=== PATIENT | male | born 1965 | race Caucasian/White ===

== ENCOUNTER → 2017-10-11 16:00 | Outpatient (CLI) | payer MEDICAID, SELFPAY ==
--- NOTE | 2017-10-11 16:00 | MRI_ITS ---
STUDY: MRI UPPER EXTREMITY RIGHT HUMERUS WITHOUT CONTRAST REASON FOR EXAM: Lump mid anterior upper arm, symptoms for one year. TECHNIQUE: Standardized fat and water weighted pulse sequences were obtained in all 3 orthogonal planes. COMPARISON: MRI right shoulder obtained the same day. FINDINGS: Normal subcutis adipose space. There is no demonstrated solid, cystic, or lipomatous mass within the subcutaneous adipose space. There is mild edema in the proximal biceps musculotendinous junction (inversion recovery axial images 14-16). The long biceps tendon appears to be retracted to approximately the level of the proximal/mid humeral diaphyseal junction (inversion recovery series 8 image 11). The distal biceps tendon cannot be evaluated secondary to artifact from metallic foreign body. Normal visualized neurovascular bundles. Normal humerus. MRI/Upper Ext/No Jt/ wo IMPRESSION: Retracted tear of the long biceps tendon with mild edema in the proximal biceps musculotendinous junction. Electronically Signed: Vitaliy Mckinnon MD at 7:46 EDT Tel , Service support ,
--- NOTE | 2017-10-11 16:00 | MRI_ITS ---
STUDY: MRI RIGHT SHOULDER REASON FOR EXAM: Right shoulder pain with limited range of motion, lump mid anterior upper arm. TECHNIQUE: Standardized fat and water weighted pulse sequences were obtained in all 3 orthogonal planes. COMPARISON: Radiographs 02/07/2017. FINDINGS: There is mild supraspinatus tendinosis and a full-thickness tear of the anterior supraspinatus tendon (T2 coronal image 14, T2 axial image 8) measuring approximately 1.0 x 1.2 cm (length x width). Normal infraspinatus tendon. Normal subscapularis tendon. Normal teres minor tendon. There is mild atrophy with mild partial fat replacement of the supraspinatus muscle (T2 axial image 8). Normal infraspinatus muscle. Normal subscapularis muscle. Normal teres minor muscle. There is a very small glenohumeral joint effusion. Normal humeral head and visualized proximal humerus. There is a tear with nonvisualization of the intracapsular long biceps tendon. There is a small superior labral tear (T2 coronal image 10). Normal capsulo- ligamentous complex. There is mild acromioclavicular arthrosis (T2 coronal images 11, 12) without undersurface osteophytes. There is a Type II morphology (curved), with a neutral orientation. There is a small volume of subacromial-subdeltoid bursal fluid. There is thickening of the coracoacromial ligament (T2 sagittal image 8). Normal deltoid muscle. Normal trapezius muscle. MRI/Upper Ext Joint Only(Routine) IMPRESSION: Full-thickness tear and mild tendinosis of the supraspinatus tendon. Mild atrophy of the supraspinatus muscle. Tear of the long biceps tendon. Small superior labral tear. Mild acromioclavicular arthrosis. Thickening of the coracoacromial ligament. Glenohumeral joint fluid communicating with the subacromial-subdeltoid bursa. Electronically Signed: Vitaliy Mckinnon MD at 7:47 EDT Tel , Service support ,
== END ==
PROVIDERS: Family Provider Family Medicine; PCP Family Medicine; Visit Provider Orthopaedic Surgery
DX: S46.211A Strain of muscle, fascia and tendon of other parts of biceps, right arm, initial encounter (principal); M75.101 Unspecified rotator cuff tear or rupture of right shoulder, not specified as traumatic
CPT/HCPCS: 73218; 73221

== ENCOUNTER 2017-11-14 05:31 | Day surgery (SDC) | payer MEDICAID, SELFPAY ==
--- NOTE | 2017-10-29 13:10 | EKG12_ITS ---
Test Reason : Blood Pressure : / mmHG Vent. Rate : 070 BPM Atrial Rate : 070 BPM P-R Int : 152 ms QRS Dur : 116 ms QT Int : 380 ms P-R-T Axes : 063 -17 030 degrees QTc Int : 410 ms Normal sinus rhythm Possible Left atrial enlargement Poor R wave progression Borderline ECG Confirmed by ROCKY AUGUSTINE, JUD ([id number]), scientific publications editor PEPE WAGNER ([id number]) on 10/30/2017 1:31:30 PM Referred By: Savannah Vázquez Confirmed By:JUD HIDALGO MD
[2017-10-29 14:06] VITALS: BP 124/84; PULSE 80; RESP 16; TEMP 36.2; O2SAT 92; BMI 23.0
[2017-10-29 14:54] LABS: Hematocrit 46.5 % (40-54); Hemoglobin 15.2 g/dl (13.0-16.5); Mean Corp Hgb Conc 32.7 g/gl (32-36); Mean Corpuscular Hgb 30.3 pg (27.0-32.0); Mean Corpuscular Volume 92.8 fL (80-94); Mean Platelet Vol. 10.5 fl (6.2-12.0); Platelet Count 196 K/mm3 (150-450); RBC Distribution Width CV 13.3 % (11.6-14.6); Red Blood Count 5.01 M/mm3 (4.6-6.2)
[2017-10-29 15:02] LABS: Partial Thromboplast Time 31.2 Seconds (24.1-36.2); Prothrombin Time (Protime)PT. 12.9 SECONDS (11.7-14.9)
[2017-10-29 15:03] LABS: Scan Indicated on CBC? Y/N NO
[2017-10-29 15:19] LABS: AST(SGOT) 17 U/L (15-37); Alanine Aminotransfer ALT/SGPT 31 U/L (16-61); Alkaline Phosphatase 64 U/L (45-117); Bilirubin, Direct 0.09 mg/dL (0.00-0.30); Globulin 3.5 g/dL (2.2-4.2); Protein, Total 7.5 g/dL (6.4-8.2)
[2017-10-29 16:04] LABS: HIV - WCH Non-Reactive (Nonreactive)
[2017-10-30 13:58] LABS: Hep C Antibodies <0.1 s/co ratio (0.0-0.9)
[2017-10-30 14:00] LABS: HEPATITIS B SURFACE AG Negative; Hep B Surface Antibodies Non Reactive; Hepatitis A AB, Total Negative; Hepatitis A IgM Antibody Negative; Hepatitis B Core AB IgM Negative; Hepatitis B Core Ab Total Negative
[2017-11-06 13:04] LABS: Amphetamine Urine VISTA NEGATIVE (<1000 ng/mL); Barbiturate Urine VISTA NEGATIVE (< 200 ng/mL); Benzodiazepine Urine VISTA NEGATIVE (< 200 ng/mL); Cocaine Urine VISTA NEGATIVE (< 300 ng/mL); Ecstacy Urine VISTA NEGATIVE (< 500 ng/mL); Methadone Urine VISTA NEGATIVE (< 300 ng/mL); PCP Urine VISTA NEGATIVE (< 25 ng/mL); THC Urine VISTA NEGATIVE (< 50 ng/mL); Vista UDS pH Range 6
[2017-11-14] VITALS (9 sets, daily range): BP systolic 122–163; BP diastolic 82–98; PULSE 60–80; RESP 18–20; TEMP 36.7–37.3; O2SAT 94–99; BMI 23.0
[2017-11-14] MEDS: Cefazolin 2 GM in 0.9% Normal Saline 100 ML IV (07:22)
--- NOTE | 2017-11-14 07:30 | TESH_PTH ---
PATIENT: NIKOLAI NEGRON [place] [facility] [place][id number] AGE/SX: 52/M ROOM: RE11/14/[address]: Dr. Savannah Vázquez DO : 1965 BED: DIS: 11/14/2017 SPEC #: [id number] RECD: 11/14/17 11:05 STATUS: MARINA LUCRETIA #: [id number] [facility]: 11/14/17 07:[address]: Savannah Vázquez DEPT: SURGICAL PATHOLOGY RECD BY: Wander Goldberg ENTERED: 11/14/17 13:03 SP TYPE: TENDON OTHR DR: Dr. Jessee Lawrence, DO Tissues: Tendon and tendon sheath, NOS Procedures: Surgery Specimen Level III HEADER OPERATION: Right shoulder arthroscopy, biceps tendotomy, intra-articular PRE-OP DIAGNOSIS: Right rotator cuff tear, rupture biceps tendon TISSUE SUBMITTED: Right biceps tendon MICROSCOPIC DIAGNOSIS Right biceps tendon: A piece of dense fibroconnective tissue with reactive changes, clinically right rotator cuff tear. BRITTNY:dmitriy 11/15/17 MICROSCOPIC DESCRIPTION Slides are reviewed. GROSS DESCRIPTION Received in fixative is one container labeled with the patient's name and designated biceps tendon right. The specimen consists of a piece of smith-white, indurated tissue measuring 2.5 x 0.7 x 0.3 cm. The entire specimen is submitted in one cassette. / BRITTNY:dmitriy 11/14/17 TC:5 CPT: 51531
--- NOTE | 2017-11-14 09:00 | PCM.DC.ORTHO ---
Discharge Diet: No Restrictions - may remove dressings pod 4 and apply bandaids to incision sites, may get incision wet after 4 days, may remove sling and use arm as tolerated, call with concerns, follow up in 2 weeks Discharge Activity: May Not Drive May shower in (days): 1 Ice area for (Minutes): 20 - Every hour while awake. Weight Bearing Status: Weight bearing as tolerated Keep extremity elevated above heart level: Operative Extremity Call your doctor if your incision/area has: Continuous Slow Oozing, Sudden Increased Bleeding, Increased Pain/ Swelling, Increased Redness, Foul Smelling Discharge Call your doctor if you observe: Fever of 101 or Higher, Coldness, Increased Pain, Numbness or Tingling, Change in Color, Calf discomfort Allergies/Adverse Reactions: Allergies naproxen [From Naprosyn] Allergy (Intermediate, Verified 10/29/17 13:56) Rash codeine phosphate [From Tylenol-Codeine #3] Allergy (Verified 10/29/17 13:56) Rash methadone [Methadone] Allergy (Verified 10/29/17 13:56) Other propoxyphene HCl [From Darvon] Adverse Reaction (Intermediate, Verified 10/29/17 13:56) Upset Stomach propoxyphene napsylate [From Darvocet-N 100] Adverse Reaction (Verified 10/29/17 13:56) Upset Stomach Medications to take at Discharge Zolpidem Tartrate [Ambien] 10 mg PO QHS PRN 03/19/16 Alprazolam [Xanax] 1 mg PO 4X/DAY 12/02/16 Ibuprofen [Ibu] 600 mg PO PRN PRN 10/29/17 Hydrocodone Bitart/Apap 5-325 [[place] 5MG-325MG] 1 - 2 tablet PO Q6H PRN PRN 5 Days #40 tablet 11/14/17 Zolpidem Tartrate [Ambien (Generic)] 5 mg PO QHS PRN PRN #14 tablet 11/14/17 The following prescriptions were given: Hydrocodone Bitart/Apap 5-325 [[place] 5MG-325MG] 1 - 2 tablet PO Q6H PRN PRN 5 Days #40 tablet PRN Reason: Pain Zolpidem Tartrate [Ambien (Generic)] 5 mg PO QHS PRN PRN #14 tablet PRN Reason: Insomnia Primary Care Physician: Jessee Lawrence DO [Primary Care Provider] - Test Results: Test results from this visit will be discussed in further detail at your follow-up appointment, if applicable. Please Follow Up With: Savannah Vázquez DO - [phone]
--- NOTE | 2017-11-14 09:01 | PCM.OPRPT ---
Report of Operation Date of Procedure: 11/14/17 Pre-Operative Diagnosis: right shoulder partial rotator cuff tear, subacromial impingment, long head biceps tendon tear Post-Operative Diagnosis: same, partial long head biceps tendon tear Surgery/Procedure Performed:: sars, rc debridement, biceps tenotomy, subacromial decompression/acromioplasty Type of Anesthesia:: General/Regional Anesthesiologist: Talib Ramos Specimen's removed: biceps tendon Estimated Blood Loss (mL): minimal Fluids Replaced: 800cc LR Description of Procedure: Preoperative note Patient is a 52-year-old male with continued right shoulder pain. Patient failed conservative treatment had a long head biceps tendon was retracted continued pain at that site as well however this happened 8 months ago. Patient failed again failed conservative treatment and elected to proceed with right shoulder arthroscopy repair is indicated. Risks benefits and alternatives surgery discussed with patient. Risks including but not limited to blood loss, blood clot, infection, neurovascular injury, failure procedure, loss of life and loss of limb. Patient is aware like proceed with right shoulder arthroscopy repair is indicated. Operative note Patient seen and examined preoperative holding area. Right shoulder was marked. Patient brought to the operating room placed supine on the operative table. Signing, anesthesia, antibiotics were administered. Right arm was prepped and draped in usual sterile fashion after beachchair is a sling. SCDs placed on bilateral lower extremities and all bony possible padded. Please note that intermediate through beachchair position we did recheck his blood pressure which was stable throughout. We marked out our bony landmarks for portal placement. Timeout was performed. We then insufflated the joint from the posterior portal. We then used an 11 blade to create a posterior portal. Begin our diagnostic arthroscopy. We then able to visualize the glenohumeral joint which is intact. The biceps tendon appeared to be intact. We then created an anterior portal under direct regurgitation. We then released the biceps tendon at its insertion and then used a shaver to debride back at the labral junction any loose pieces. We then moved visualize the subscap which is intact rotator cuff which is intact there is a small partial tear of the leading edge of the rotator cuff however is not full-thickness and about 10-15% this was gently debrided with a shaver as well. There were no loose bodies in the inferior recess. We then moved to our open biceps tenodesis as at that point I thought maybe we would be able to pull the biceps narrowing remaining biceps tendon and secured down to bone. We reprepped the area waited the allotted time and then cut down with a 15 blade and dissected down tenotomy syllable of where the biceps should be but it was retracted. Please note that in preop patient wanted to see if there is any way that I can fix his biceps tendon which had been retracted for 8 months we discussed the risks of this including neurapraxia nerve damage and failure of procedure due to the longevity of it being retracted. However did attempt to visualize the retracted piece we found a small piece of the biceps had tried pulling on it was appeared to be still intact with back went back into the shoulders and tried to pull the piece of the biceps tendon we had resected did not retract out of the anterior portal and it was still attached to a small sliver biceps so this was truncated appear that he had actually truncated the biceps tendon about the level of the introducer tubercle groove and it retracted about 80% of it. We truncated again that the remaining 20% brought the biceps tendon out for the anterior and sent it to pathology for further evaluation. At that time the remaining tendon did retract however there was not enough to try to repair and we did attempt to explore distally but it was so scarred and it was difficult to find the tendon and I believe that most of his pain was because he had just partially still attached and so was not allowed to fully retract his was having some wrapping from that little piece that was still remaining in his shoulder hopefully despite releasing that in its entirety he will have decreased pain and the biceps itself. The incision was irrigated with copious amounts of sterile saline. It was closed with interrupted 2-0 Vicryl and running 4-0 Monocryl. Sterile dressings were applied. We also closed the portals with 4-0 nylon. Sterile dressings were applied. Patient was placed in a regular sling. Patient tolerated procedure well there are no complications transferred to recovery room in stable condition next Postoperative note Use arm as tolerated Prescriptions at Hospital pharmacy We will give pictures to family at postop visit next Follow-up in 2 weeks Dragon disclaimer This note was generated with [employer] dictation software. It may contain incorrect words, spelling, and punctuation that were not noted in checking the note before signing.
[2017-11-14] MEDS: Mupirocin Ointment 22gm Tube 1 APPLIC (09:05)
[2017-11-14] MEDS: HYDROcodone Bitartrate/Apap 5/325 Tablet PO (10:22)
== END 2017-11-14 11:43 | disposition home or self-care (01) ==
LOC: SDC 05:31 → AC 05:32
PROVIDERS: Family Provider Family Medicine; PCP Family Medicine; Visit Provider Orthopaedic Surgery
PROC: (CPT 29827; principal; 2017-11-14 07:10)
DX: M75.121 Complete rotator cuff tear or rupture of right shoulder, not specified as traumatic (principal); S46.111A Strain of muscle, fascia and tendon of long head of biceps, right arm, initial encounter; X58.XXXA Exposure to other specified factors, initial encounter; M75.41 Impingement syndrome of right shoulder; F41.9 Anxiety disorder, unspecified; F17.200 Nicotine dependence, unspecified, uncomplicated
CPT/HCPCS: 01630; 23405; 29826; 29827; 36415; 80076; 80307; 85027; 85610; 85730; 86703; 86704; 86705; 86706; 86708; 86709; 86803; 87340; 88304; 93005; J7120; J2405

== ENCOUNTER 2017-11-29 14:55 | Emergency (ER) | payer MEDICAID, SELFPAY ==
[2017-11-29 14:56] VITALS: BP 114/66; PULSE 93; RESP 16; TEMP 36.9; O2SAT 98; BMI 23.1
--- NOTE | 2017-11-29 15:26 | ED.DCSUM_ITS ---
- ER Visit Summary Date of Service: 11/29/17 Chief Complaint: Right shoulder pain History of Present Illness: The patient is a [address] Lawrence and Dr. Vázquez. He had right shoulder surgery on November [address] Vázquez. He reports that he has had a sharp pain in his shoulder since that time. He states pain is 10 out of 10 at worst 9 out of 10 currently. Is worsened by movement relieved by rest. He denies any fever, chills, nausea, vomiting, or other constitutional symptoms. Patient reports that he saw Dr. Vázquez and was given a prescription for tramadol on November 27. He states that she told him that he would not get any further pain medications from her and suggested that he go to pain management Physical Examination: Vitals: Stable. Afebrile. General: Well-nourished and well-developed. Head: Normocephalic atraumatic. Neck: Supple, no lymphadenopathy. No JVD. Nontender. Cardiovascular: Regular rate and rhythm. No murmurs. Respiratory: No respiratory distress. Clear to auscultation bilaterally. Abdominal: Soft, nontender, nondistended, normal bowel sounds. No guarding, rebound, or peritoneal signs. Back: Nontender. Extremities: 3 incisions over the right shoulder are well-healed. No erythema, induration, or warmth to suggest infection. He has moderate tenderness palpation is diffuse over his entire shoulder. Skin: Normal color, no rash. Neurologic: Alert and oriented ?3. Cranial nerves II through XII are intact. Normal strength and sensation. Psych: Normal affect. Emergency Department Course and Treatment: An [facility] report was obtained which shows that since the surgery he has had prescriptions for 110 pain pills. I was able to review Dr. Vázquez his most recent dictation and discussed the patient that if she does not feel that he needs further pain medications that I will not prescribe opiate-based medications for him. I have offered Tylenol, naproxen, and ibuprofen. He refused all of these. I also discussed with the patient if he has contacted his primary care physician Dr. Lawrence as he has an established relationship with him and he is more likely to give him prescription for opiate-based medications. Patient reports that he has not because he knows Dr. Lawrence will not give him opiate medications. Treatment Plan: Patient was very upset that I will not prescribe opiate-based medications. However, I do not feel this is appropriate or in his best interest. I have suggested that he take Tylenol and/or ibuprofen for pain. I have also suggested ice and physical therapy. He will be discharged instructions to follow-up Dr. Lawrence as soon as possible. Follow-up Dr. Vázquez in 1 week if not improving. Return to the emergency department for any worsening symptoms. Disposition: To home in improved and stable condition. Impression: 1. 15 days status post right shoulder surgery. This note was generated with [facility] dictation software. It may contain incorrect words, spelling, and punctuation that were not noted in review of the chart prior to signing ED Disposition - Plan for ED Patient: Disposition: Home or Assisted Living Chief Complaint: Med Refill Instructions: ED Post Op Pain Referrals: Jessee Lawrence DO [Primary Care Provider] - As soon as possible Savannah Vázquez DO [STAFF PHYSICIAN] - 1 Week if not improving
== END 2017-11-29 15:37 | disposition home or self-care (01) ==
LOC: ED 15:34
PROVIDERS: Emergency Provider Emergency Medicine; Family Provider Family Medicine; PCP Family Medicine
DX: M25.511 Pain in right shoulder (principal); Z98.890 Other specified postprocedural states; F41.9 Anxiety disorder, unspecified; Z72.0 Tobacco use
CPT/HCPCS: 99282

== ENCOUNTER 2018-01-04 10:59 | Outpatient (RCR) | payer MEDICAID, SELFPAY ==
--- NOTE | 2018-01-07 16:44 | HP.PTEVAL_ITS ---
Patient's Visit Information NIKOLAI NEGRON is a 52 year old M referred to Physical Therapy by Savannah Vázquez DO with a diagnosis of R shoulder Ac decompression, R shoulder scope. Date of Evaluation: 01/04/18 Physical Therapist: Jeremias Cueva - Visit Plan Frequency: 2x /Week Duration: 4 Weeks Plan: Start with RTC phase III and houghstons exercises. US and deep friction massage to biceps. I talked with patient that biceps spasming will fade with some time. He has great ROM at this point in time. He desired to complete exercises on own at this point in time. - Subjective Subjective: Pt reports to PT following RC debridment surgery and bicep tendon rupture. pt was experiencing shoulder pain which reached down their arm. pt reported that they were experiencing a time of decreased symptoms so they wanted to test their shoulder out and lifted themselves up between two shopping carts. When pt did this, pt's bicep ruptured. Following shoulder surgery pt experienced severe shoulder pain and refused initial PT. pt has since been refered to PT again but reports wanted to complete most of the treatment at home. Pt. has does report increased biceps cramping at times and this is his biggest complaint at this point in time. 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 - Pain Right Shoulder Pain Intensity (Out of 10): 1 - Objective POSTURE: Pt. has normal posture, except sight forward head and rounded shoulders. Normal symmetrical AC hieghts. Palpation: Pt. has normal healing incision. Pt. has no signs of infection. Pt. has tenderness at biceps muscle belly, but no pain otherwise. NEURO: all normal no loss of sensation of DTR bilaterally. ROM: WFL bilaterally. Pt. did have mild increase in symptoms with flexion and abduction with over pressures. MMT: 5/5, except R shoulder flexion 4/5 and elbow flexion 4/5. - Goals Goal 1:: Pt. to be I with HEP. Goal Time Frame: 4-6 Weeks Goal 2:: Pt. to have increased RUE strength by 1/2 grade of all effected musculature to increase stabilty and ability to complete all ADLs/work activities. Goal Time Frame: 4-6 Weeks Goal 3:: Pt. to have decreased biceps muscle spasming allowing for increased tolerance to all work activities. Goal Time Frame: 4-6 Weeks Goal 4:: Pt. to resume all work related activities without increase in symptoms. Goal Time Frame: 4-6 Weeks Goal 5:: Pt. to sleep throughout the night without increase in symptoms allowing for increased quality of life. - Rehabilitation Potential Physical Therapy Diagnosis: Pt. has signs and symptoms consistent with biceps tear and R shoulder arthroscopic surgery. Pt. has improved ROM, but continues to complain of increased weakness and bicipital cramping. Pt. would benefit from PT ot increase RUE stability/strength and decrease bicpital pain. Rehabilitation Potential: Excellent - Anticipated Interventions Patient/Client Instruction: Educate patient on: Condition, Plan of Care, Risk Factors, Benefits of Fitness Program For the Purpose of:: To improve health and function, To foster healthy habits, To improve decision making, To facilitate caregiver knowledge, To improve self management, To prevent re-injury, To improve ability to perform tasks related to life management, To improve tolerance to ADL's Therapeutic Exercise to Include: Strength training, Power training, Agility training, Body mechanics, Flexibilty training, Passive ROM, Active ROM, Scapular Strength/Stabilization For the Purpose of:: To decrease pain, To increase ROM, To improve nutrient d elivery to tissue, To increase oxygenation perfusion, To improve muscle performance and motor function, To improve health of tissue, To decrease soft tissue restriction, To increase flexibility/ROM Ultrasound (thermal/non thermal): Yes For the Purpose of:: To decrease pain, To increase ROM, To improve nutrient delivery to tissue, To improve muscle performance and motor function, To improve health of tissue, To increase flexibility/ROM Thank you for the opportunity to evaluate your patient. For Medicare and Medicare HMO plans, please review the plan of care and approve it. It will need to be FAXED BACK to us at [phone] for Medicare purposes. Please let me know if there are questions or concerns regarding this plan of care. Physician Signature: Date:
--- NOTE | 2018-07-12 09:40 | HP.PT.NRP ---
HP - Discharge Summary (1) - Patient Information NIKOLAI NEGRON was seen in my office for initial evaluation on 01/04/18. The following Plan of Care was established for this patient: Initial Frequency: 2x /Week Initial Duration: 4 Weeks - Anticipated Interventions Patient/Client Instruction: Educate patient on: Condition, Plan of Care, Risk Factors, Benefits of Fitness Program For the Purpose of:: To improve health and function, To foster healthy habits, To improve decision making, To facilitate caregiver knowledge, To improve self management, To prevent re-injury, To improve ability to perform tasks related to life management, To improve tolerance to ADL's Therapeutic Exercise to Include: Strength training, Power training, Agility training, Body mechanics, Flexibilty training, Passive ROM, Active ROM, Scapular Strength/Stabilization For the Purpose of:: To decrease pain, To increase ROM, To improve nutrient delivery to tissue, To increase oxygenation perfusion, To improve muscle performance and motor function, To improve health of tissue, To decrease soft tissue restriction, To increase flexibility/ROM Ultrasound (thermal/non thermal): Yes For the Purpose of:: To decrease pain, To increase ROM, To improve nutrient delivery to tissue, To improve muscle performance and motor function, To improve health of tissue, To increase flexibility/ROM This patient was last seen in our office 01/05/28. Pertinent comments regarding their Physical therapy will appear below: Pt. was seen for his initial evaluation with a bicep tendon repair. Pt. did not attend any follow up visits. Pt. has not been seen in several months and will be DC from PT at this point in time. At this point I will be discontinuing this patient from physical therapy. I would be happy to see this patient again in the future if found appropriate by the physician. Thank you! Jeremias Cueva, VIVIANAT
== END 2018-01-04 19:00 | disposition home or self-care (01) ==
LOC: PT 10:59
PROVIDERS: Family Provider Family Medicine; PCP Family Medicine; Referring Provider Orthopaedic Surgery; Visit Provider Orthopaedic Surgery
DX: Z98.890 Other specified postprocedural states (principal)
CPT/HCPCS: 97035; 97161

== ENCOUNTER 2018-11-14 18:10 | Emergency (ER) | payer MEDICAID, SELFPAY ==
[2018-11-14 18:11] VITALS: BP 124/92; PULSE 102; RESP 16; TEMP 36.6; O2SAT 95; BMI 22.7
--- NOTE | 2018-11-14 18:22 | ED.RN ---
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
--- NOTE | 2018-11-14 18:32 | ED.DCSUM_ITS ---
- ER Visit Summary Date of Service: 11/14/18 Chief Complaint: Heroin overdose History of Present Illness: The patient is a 53 M history of drug abuse. Patient snorted heroin today. Squad was called. On their arrival the patient had a pulse ox of 33 and a heart rate in the 30s. He was treated with Narcan x3 and started coming to. He denies any complaints. He has this happen before. He denies being through any type of recent detox. The deputy sheriff is in the room and has already discussed with him treatment options and where he can get local help for abuse. She also left him a packet of information. Physical Examination: Middle-aged male. Vital signs are stable. He is afebrile. Currently his pulse ox is 95%. HEENT exam unremarkable. Atraumatic. Pupils round reactive light. Moist use membranes. No signs of trauma to his face or scalp. C-spine nontender. Trachea midline. No lymphadenopathy. Lungs clear to auscultation bilaterally. Heart regular rhythm no murmur. Chest nontender. Abdomen soft nontender. Remedies moves all 4. Neurovascular intact. Nontender no edema. No deformity. Back nontender. Neurologically is awake alert. Knows where he is at. Answering questions and following commands. No focal motor or sensory deficits. Test Results: None Emergency Department Course and Treatment: Patient will be observed for period of time. 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 Repeat exam at just before 7 PM patient is doing well. He will be monitored for short period of time if he is doing well be discharged home. Treatment Plan: Strongly consider outpatient follow-up. Disposition: Discharge Impression: Acute heroin overdose with a history of drug abuse This note was generated with [employer] software. It may contain incorrect words, spelling, and punctuation that were not noted in review of the chart prior to signing ED Disposition - Plan for ED Patient: Disposition: Home or Assisted Living Instructions: Drug Abuse Referrals: Jessee Lawrence DO [Primary Care Provider] - As Needed [facility] [STAFF PHYSICIAN] - As soon as possible Additional Instructions: Probably consider following up with [facility]. The life you Save may be your own.
--- NOTE | 2018-11-14 18:35 | ED.DEP ---
ED Disposition - Plan for ED Patient: Disposition: Home or Assisted Living Instructions: Drug Abuse Referrals: Jessee Lawrence DO [Primary Care Provider] - As Needed [facility] [STAFF PHYSICIAN] - As soon as possible Additional Instructions: Probably consider following up with [facility]. The life you Save may be your own.
--- NOTE | 2018-11-14 19:15 | CM.ED ---
Social Work Consult: Overdose Informant: Dr. Ortiz Chief Complaint: Patient stating to have taken Heroine it has never done this to me before, there must have been something in it. Marital/Social History: Single. Living Situation: Patient stating to live alone currently. Patient stating that roommate recently passed in September 2018. Support/Resources: Patient stating to have limited support Mental Health Treatment/History: Patient stating to have a panic attacks and a diagnosis of anxiety. Patient denies having a current counselor or psychiatrist. Substance Abuse Hx: Patient denies having an issue with Heroine use and that today was a one time thing. Patient is admitting to use Heroine in the past but no recently. Patient reporting to have also consumed at least a 6 pack of beer today. Assessment: Met with patient in room. This social welfare administrator introduced self as well as socia worker role. This social welfare administrator broaching topic of community resources for patient. Patient declining all resources or support for substance abuse stating I don't have an issue. This social welfare administrator did offer grief support due to roommate recently passing. Patient receptive to speaking with this social welfare administrator, but again declining any support for grief such a counseling. Patient planning to return to home in [place]. Interventions: Social Work assessment Attempted to offer resources, patient declined. Grief support Mildred ASIF, BRITTNEY
[2018-11-14 19:30] VITALS: BP 99/73; PULSE 93; RESP 18; O2SAT 98
--- NOTE | 2018-11-14 19:31 | ED.RN ---
PT GIVEN WRITTEN AND VERBAL DISCHARGE INSTRUCTIONS. PT A+OX4. PT VERBALIZES UNDERSTANDING AND DENIES ANY FURTHER QUESTIONS. IV D/C AND COVERED WITH 2X2 GAUZE DRESSING AND PAPER TAPE. BOARD HAMMER OPERATOR CALLED FOR [facility]. PT GIVEN PAPER SCRUB TOP. PT AMBULATES OUT OF DEPT BY SELF.
== END 2018-11-14 19:39 | disposition home or self-care (01) ==
LOC: ED 18:47
PROVIDERS: Emergency Provider Emergency Medicine; Family Provider Family Medicine; PCP Family Medicine
DX: T40.1X1A Poisoning by heroin, accidental (unintentional), initial encounter (principal); F11.10 Opioid abuse, uncomplicated; Z72.0 Tobacco use
CPT/HCPCS: 99284; J7030; A4216

== ENCOUNTER 2019-01-24 20:15 | Emergency (ER) | payer MEDICAID, SELFPAY ==
[2019-01-20 13:02] VITALS: BMI 22.7
[2019-01-24 20:16] VITALS: BP 125/90; PULSE 98; RESP 18; TEMP 36.7; O2SAT 96; BMI 22.1
--- NOTE | 2019-01-24 20:29 | ED.VIS.GEN ---
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 He states he does not take any medicines he is not prescribed and denies illicit drug use. Patient has been seen by me in the past for respiratory arrest that responded to Narcan. Patient presently has no symptoms. He states he had 3 beers this evening. Prior similar symptoms: Yes Recent Illness/Hospitalization: Yes - Past Medical History (1) Asthma Status: Acute (2) Bronchitis Status: Acute (3) Overdose Status: Acute Past Medical History - Allergies and Home Meds Allergies/Adverse Reactions: Allergies naproxen [From Naprosyn] Allergy (Intermediate, Verified 01/20/19 13:01) Rash codeine phosphate [From Tylenol-Codeine #3] Allergy (Verified 01/20/19 13:01) Rash methadone [Methadone] Allergy (Verified 01/20/19 13:01) Other propoxyphene HCl [From Darvon] Adverse Reaction (Intermediate, Verified 01/20/19 13:01) Upset Stomach propoxyphene napsylate [From Darvocet-N 100] Adverse Reaction (Verified 01/20/19 13:01) Upset Stomach Primary Care Physician: Jessee Lawrence DO [Primary Care Provider] - [facility] [STAFF PHYSICIAN] - As soon as possible Prior records reviewed: Yes Surgical History: no surgical history Lives: Alone Smoking Status: Current every day smoker Alcohol: Heavy Drugs: - - Opiate type medication/drug Review of Systems ROS: Unable to Obtain - Patient denies everything and states there is nothing wrong with him General: Denies: Chills, Fever, Sweats Eyes: Denies: Visual changes - bilaterally, Diplopia ENT: Denies: Rhinorrhea, Sore throat Cardiovascular: Denies: Chest pain, Palpitations Respiratory: Denies: Dyspnea, Cough, Dyspnea on exertion Gastrointestinal: Denies: Abdominal pain, Nausea, Vomiting, Diarrhea, Melena, Hematochezia Genitourinary: Denies: Dysuria, Hematuria, Frequency Musculoskeletal: Denies: Myalgias, Arthralgias, Neck pain, Back pain, Swelling, Extremity Pain Skin: Denies: Rash, Wounds Neurological: Denies: Headache, Weakness, Numbness Psych: Denies: Depression, Anxiety Physical Exam Vital Signs/Narrative: Vital Signs Temp Pulse Resp BP Pulse Ox 01/24/19 20:16 98.0 F 98 18 125/90 H 96 Inital Vital Signs reviewed: Yes General: Well nourished, Well developed, No Acute Distress Head: Normocephalic, Atraumatic Eyes: Perrl, EOMI ENT: Moist mucous membranes, No rhinorrhea Neck: Supple, Nontender Cardiovascular: Regular rate, Regular rhythm, No murmurs, Normal S1, Normal S2 Respiratory: No distress, CTA bilaterally, Chest nontender Abdomen: Soft, Nontender, Nondistended, Normal bowel sounds Back: Nontender, Normal Inspection Extremities: Nontender, No edema Skin: Normal color, No rash Neurological: Alert, Oriented x3, Cranial nerves II-XII grossly intact, Normal Strength, Normal Sensation Psychological: Normal affect, Normal Mood Diagnostic/Tx/Re-eval - Rhythm Strip Rhythm Strip: Sinus Rhythm Rate: 96 Ectopy: None - Medical Decision Making Will observe patient for 45 to 60 minutes. Half-life of Narcan is 30 to 45 minutes. If there is no depression in his level of conscious or respiration will discharge to home. Patient declined referral to rehab since he states he does not take drugs. Entered the room reassess patient at 2105. He was unresponsive. His respiratory rate was 12. He did wake up to loud verbal stimuli. Will place CO2 monitor on patient and observed for another 30 to 45 minutes. Patient's respiratory rate is 14-16 with a CO2 of 37. He rouses easily with verbal stimulation. Patient has been observed for 1 hour and 35 minutes. He has not received any additional doses of Narcan. ED Disposition - Plan for ED Patient: Disposition: Home or Assisted Living Diagnosis: Respiratory arrest, Opiate or related narcotic overdose Instructions: Opiate Abuse Referrals: Jesese Lawrence DO [Primary Care Provider] - [facility] [STAFF PHYSICIAN] - As soon as possible
[2019-01-24 21:36] VITALS: BP 108/72; PULSE 81; RESP 18; O2SAT 96
[2019-01-24 22:14] VITALS: BP 96/67; PULSE 88; RESP 14; O2SAT 95
== END 2019-01-24 22:19 | disposition home or self-care (01) ==
PROVIDERS: Emergency Provider Emergency Medicine; Family Provider Family Medicine; PCP Family Medicine
DX: T40.601A Poisoning by unspecified narcotics, accidental (unintentional), initial encounter (principal); R09.2 Respiratory arrest; Y92.009 Unspecified place in unspecified non-institutional (private) residence as the place of occurrence of the external cause; F11.90 Opioid use, unspecified, uncomplicated; F17.200 Nicotine dependence, unspecified, uncomplicated
CPT/HCPCS: 94770; 99285

== ENCOUNTER 2019-02-14 13:01 | Emergency (ER) | payer MEDICAID, SELFPAY ==
[2019-02-14 13:05] VITALS: BP 123/80; PULSE 107; RESP 18; TEMP 36.1; O2SAT 98; BMI 21.9
--- NOTE | 2019-02-14 13:19 | CT_ITS ---
STUDY: CT BRAIN WITHOUT CONTRAST REASON FOR EXAM: Male, 53 years old. Near syncopal episode. RADIATION DOSAGE (If Supplied By Facility): CTDIvol = ( 44.99 ) mGy, DLP = ( 779.24 ) mGycm TECHNIQUE: Transaxial CT imaging of the brain was performed without administration of intravenous contrast material. Individualized dose optimization techniques were used for this CT. COMPARISON: Comparison is made with prior study January 20, 2015. FINDINGS: Normal soft tissue structures. Normal calvarium. Normal size ventricles and extra-axial spaces for the patient's age. Normal white matter tracts of the cerebral hemispheres. Normal basal ganglia and thalami. Normal brainstem. Normal cerebellum. There is no intracranial hemorrhage. There are no findings of an acute ischemic infarction. Partial opacification of the left maxillary sinus as well as the ethmoid sinus. CT/Brain/Head without Contrast IMPRESSION: Left maxillary and ethmoid sinusitis. Electronically Signed: Mario Castro, at 13:47 EST , Service support ,
--- NOTE | 2019-02-14 13:19 | EKG12_ITS ---
Test Reason : Blood Pressure : / mmHG Vent. Rate : 088 BPM Atrial Rate : 088 BPM P-R Int : 142 ms QRS Dur : 116 ms QT Int : 376 ms P-R-T Axes : 073 -04 044 degrees QTc Int : 454 ms Normal sinus rhythm Normal ECG Confirmed by PORTIA AUGUSTINE, ADELE ([id number]), news editor [employer] ([id number]) on 02/18/2019 2:20:36 PM Referred By: BASSAM/JA Confirmed By:ADELE PEARCE MD
--- NOTE | 2019-02-14 13:19 | RAD_ITS ---
STUDY: X-RAY CHEST REASON FOR EXAM: Male, 53 years old. Near syncopal episode. TECHNIQUE: Single AP portable view of the chest. COMPARISON: Comparison is made with prior study December 02, 2016. FINDINGS: Hyperinflation. There is no demonstrated pleural abnormality. Normal size heart. Normal mediastinum and tayler. Normal visualized pulmonary arteries. Normal visualized aortic arch and descending thoracic aorta. Normal visualized thoracic spine. Normal visualized ribs, clavicles, and shoulders. There is no demonstrated abnormality of the visualized soft tissue structures of the upper abdomen. RAD/Chest 1 View IMPRESSION: Hyperinflation. Electronically Signed: Mario Castro, at 13:47 EST , Service support ,
--- NOTE | 2019-02-14 13:22 | ED.DCSUM_ITS ---
- ER Visit Summary Date of Service: 02/14/19 Chief Complaint: Dizziness History of Present Illness: The patient is a 53 M who reports dizziness that started around 12:30 PM today. 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 His eyes started moving back and forth quickly. He could not focus on the numbers on the air gauge. He got up and felt like his balance was off. He thought he might pass out. He denies any history of vertigo, stroke, or seizure. Denies vision changes, speech changes, facial droop, or weakness. History of asthma, drug overdose, bronchitis, and hypertension. Physical Examination: Afebrile and vital signs unremarkable except heart rate is 107. Alert and oriented. No acute distress. Head and neck atraumatic. Neck is nontender. HEENT exam normal. No nystagmus. No facial droop. Cranial nerves grossly intact. Heart tachycardic but regular. Lungs clear. Abdomen soft. Extremities nontender with no edema. Skin appears normal. Good strength and sensation. Normal cerebellar testing. NIH stroke scale is 0. Test Results: Chest x-ray, CT brain, EKG, labs pending. Emergency Department Course and Treatment: Patient presents with sudden onset of what sounds like peripheral vertigo. Symptoms have improved. He does not have any focal findings to suggest stroke. Nothing to suggest seizure. No loss of consciousness. Will check EKG, labs, imaging and reassess. Coags are pending, but otherwise labs are unremarkable. EKG showed sinus rhythm at a rate of 88. No signs of ischemia or infarction pattern. No dysrhythmias noted on the monitor. Chest x-ray showed hyperinflation. CT brain showed sinusitis. On reevaluation, patient has no further dizziness, vision changes, or other neurologic symptoms. He does complain of frontal head and face pressure. I s uspect this may be from his sinusitis. I am concerned the patient may have had an atypical seizure or stroke. He does not have a classic presentation for peripheral vertigo. I discussed this with t gadiel patient. He does not want to be admitted to the hospital at all. Risks were discussed. I advised admission for neurology consultation, further imaging, and further testing. Patient refused. He was amenable to further testing in the ED. We will check CTAs of his head and neck. Will treat for sinusitis and vertigo. Patient will be referred for outpatient follow-up. Oncoming doctor will check the results of the CTA's. If they are unremarkable, the patient will be discharged. Follow-up with neurology. Treatment Plan: As above Disposition: Pending Impression: 1. Vertigo 2. Sinusitis This note was generated with [employer] software. It may contain incorrect words, spelling, and punctuation that were not noted in review of the chart prior to signing ED Disposition - Plan for ED Patient: Instructions: VERTIGO, Unspecified Prescriptions: Meclizine HCl [Antivert] 25 mg PO TID PRN PRN #20 tab PRN Reason: Dizziness Prescription Printed Amox/Clavulanate Tablet [Augmentin Tablet] 875 mg PO Q12H #20 tab Prescription Printed Referrals: Jose Raul Reddy MD [STAFF PHYSICIAN] -
[2019-02-14 14:06] VITALS: BP 122/75; PULSE 88; RESP 16; O2SAT 97
[2019-02-14 14:10] LABS: Bedside Glucose 83 mg/dL (70-110)
[2019-02-14 14:14] LABS: Absolute Lymphocyte Count 2.06 X10^3/uL (0.83-4.51); Absolute Neutrophil Count 7.6 X10^3/uL (2.0-7.7); Basophil# 0.08 X10^3/uL; Basophil% 0.8 % (0-1); Eosinophil# 0.24 X10^3/uL; Eosinophils% 2.3 % (0-5); Hemoglobin 16.3 g/dL (13.0-16.5); Lymphocyte # 2.06 X10^3/ul (4.0); Lymphocyte % 19.6 % (19-41); Mean Corp Hgb Conc 33.3 g/dL (32-36); Mean Corpuscular Hgb 30.6 pg (27.0-32.0); Mean Corpuscular Volume 91.9 fL (80-94); Mean Platelet Vol. 10.2 fl (6.2-12.0); Monocyte# 0.52 X10^3/uL; Monocyte% 4.9 % (0-10); NRBC Flagged by Analyzer 0 % (0-5); Neutrophil # 7.59 X10^3/uL (2.7-7.7); Neutrophil % 72.1 % (47-70); Platelet Count 219 K/mm3 (150-450); RBC Distribution Width CV 13.1 % (11.6-14.6); RBC Distribution Width SD 44.4 fl (35.1-43.9); Red Blood Count 5.33 M/mm3 (4.6-6.2); White Blood Count 10.5 K/mm3 (4.4-11.0)
[2019-02-14 14:26] LABS: Anion Gap 7 (5-15); BUN 11 mg/dL (7-18); BUN/Creat Ratio 11.9 RATIO (10-20); Calcium,Total 9.1 mg/dL (8.5-10.1); Chloride 104 mmol/L (98-107); Creatinine, Serum 0.92 mg/dL (0.70-1.30); EST Glomerular Filtration Rate 91 mL/min (>60); Est Glom Filt Rate - Afr Amer 110 mL/min (>60); Glucose 90 mg/dL (74-106); Potassium 4.1 mmol/L (3.5-5.1); Sodium Level 136 mmol/L (136-145)
--- NOTE | 2019-02-14 14:31 | CT_ITS ---
STUDY: CTA HEAD AND NECK WITH CONTRAST REASON FOR EXAM: Male, 53 years old. Dizziness. Near syncopal episode. RADIATION DOSAGE (If Supplied By Facility): CTDIvol = ( 16.89 ) mGy, DLP = ( 729.04 ) mGycm TECHNIQUE: CT angiography was performed with a multi-detector CT scanner. Data acquisition was obtained from the skull base through the vertex following intravenous administration of IV Isovue 370 100mL. MIP images were reconstructed from the axial data set. Post-processing of the angiographic images was performed, with multiplanar reformation and 3D reconstruction. Individualized dose optimization techniques were used for this CT. COMPARISON: No relevant priors. FINDINGS: Normal bilateral petrous carotid arteries. Normal right cavernous carotid artery with a normal supraclinoid bifurcation. Normal left cavernous carotid artery with a normal supraclinoid bifurcation. Normal right A1 segments of the anterior cerebral artery. Normal left A1 segments of the anterior cerebral artery. Normal intact anterior communicating artery (ACOM). Normal bilateral A2 segments of the anterior cerebral arteries. Normal right M1 and M2 segments of the middle cerebral arteries, with a normal M1 bifurcation. Normal left M1 and M2 segments of the middle cerebral arteries, with a normal M1 bifurcation. Normal right posterior communicating artery (PCOM). Normal left posterior communicating artery (PCOM). Normal bilateral vertebral arteries. Normal basilar artery with a normal basilar bifurcation. The visualized bilateral superior cerebellar (SCA) arteries are normal. Normal bilateral P1, P2 and visualized P3 segments of the posterior cerebral arteries. There is no demonstrated aneurysm of the pauma of [place]. There is no demonstrated abnormality of the visualized brain. AORTIC ARCH: There is atherosclerotic calcific plaque formation of the aortic arch and great vessels arising from the aortic arch, without a hemodynamically significant stenosis. There is a bovine origin of the great vessels with a common origin of the brachiocephalic and left common carotid artery. Normal origin of the left subclavian artery. Normal origins of the brachiocephalic, left common carotid, and left subclavian arteries. RIGHT CAROTID ARTERIES: Normal right common carotid artery (CCA). Normal right common carotid bulb. Normal origin of the right internal carotid (ICA) artery without a hemodynamically significant stenosis. Normal visualized cervical portion of the right internal carotid artery. Normal origin of the right external carotid artery (ECA). LEFT CAROTID ARTERIES: Normal left common carotid artery (CCA). Normal left common carotid bulb. Normal origin of the left internal carotid (ICA) artery without a hemodynamically significant stenosis. Normal visualized cervical portion of the left internal carotid artery. Normal origin of the left external carotid artery (ECA). VERTEBRAL ARTERIES: There is enhancement within the bilateral vertebral arteries with a small right vertebral artery, and a dominant left vertebral artery. CT/CTA Head AND Neck W/ Contrast IMPRESSION: Normal CTA Head and neck with contrast. Electronically Signed: Mario Castro, at 15:49 EST , Service support ,
--- NOTE | 2019-02-14 14:38 | ED.RN ---
[facility] CANCELLED PER DR PERES
--- NOTE | 2019-02-14 14:39 | ED.DEP ---
ED Disposition - Plan for ED Patient: Instructions: VERTIGO, Unspecified Prescriptions: Meclizine HCl [Antivert] 25 mg PO TID PRN PRN #20 tab PRN Reason: Dizziness Prescription Printed Amox/Clavulanate Tablet [Augmentin Tablet] 875 mg PO Q12H #20 tab Prescription Printed Referrals: Jose Raul Reddy MD [STAFF PHYSICIAN] -
[2019-02-14 15:31] VITALS: BP 124/85; PULSE 78; RESP 14; O2SAT 97
[2019-02-14 15:39] LABS: Prothrombin Time (Protime)PT. 12.5 SECONDS (11.7-14.9)
[2019-02-14 15:40] LABS: Partial Thromboplast Time 28.5 Seconds (24.1-36.2)
[2019-02-14 17:07] VITALS: PULSE 69; RESP 15; O2SAT 99
== END 2019-02-14 17:36 | disposition left against medical advice (07) ==
LOC: ED 14:30
PROVIDERS: Emergency Provider Emergency Medicine; Family Provider Family Medicine; PCP Family Medicine
DX: R42 Dizziness and giddiness (principal); J32.0 Chronic maxillary sinusitis; J32.2 Chronic ethmoidal sinusitis; F17.200 Nicotine dependence, unspecified, uncomplicated; Z53.29 Procedure and treatment not carried out because of patient's decision for other reasons
CPT/HCPCS: 70450; 70496; 70498; 71045; 80048; 82962; 84484; 85025; 85610; 85730; 93005; 96360; 99285; J7030; Q9967; A4216

== ENCOUNTER → 2019-06-27 13:17 | Outpatient (CLI) | payer MEDICAID, SELFPAY ==
[2019-06-23 09:50] VITALS: BMI 21.9
--- NOTE | 2019-06-27 13:18 | MRI_ITS ---
STUDY: MRI LUMBAR SPINE WITHOUT CONTRAST REASON FOR EXAM: Male, 54 years old. Status post trauma sustained during a fall 3-4 weeks ago, complaining of low back pain, right foot drop and bilateral hip radiculopathy with numbness of the left buttocks. TECHNIQUE: Standardized fat and water weighted pulse sequences were obtained in the sagittal and axial planes. COMPARISON: X-RAY LUMBAR SPINE-March 19, 2016 FINDINGS: Vertebrae, Alignment and Curvature Vertebrae: There is multilevel anterior endplate spondylosis of the lumbar spine. Alignment: There is minimal retrolisthesis of the L5 vertebra, further discussed below. Curvature: Straightening of the normal cervical lordosis. No scoliosis. Thoracic Cord (visualized distal) / Conus Medullaris Normal. Terminates at the inferior endplate of the L1 vertebra. Disc Space Levels N.B.: Normal level statement indicates: Normal endplates; disc height, signal and morphology; facet joints; central canal, lateral recesses, and intervertebral neuroformina. T12-L1: Normal. (Imaged only in the sagittal plane). L1-L2: There is disc desiccation, preservation of the disc height, anterior endplate spondylosis with a small posterior central annular tear, but without disc displacement. Normal central canal and intervertebral neural foramina. L2-L3: Normal disc hydration and height with minimal posterior annular bulging and mild anterior endplate spondylosis. Normal facet joints. Normal central canal and intervertebral neural foramina. L3-L4: There is disc desiccation, preservation of the disc height with minimal annular bulging and mild facet arthrosis. Normal central canal and intervertebral neural foramina. L4-L5: There is disc desiccation, preservation of the disc height with posterior left foraminal annular bulging and with a right foraminal small disc protrusion (sagittal T2 series 2, image 10; axial T2 series 5, image 7). The right foraminal disc protrusion measures approximately 4 mm in width and is superimposed upon mild facet arthrosis producing retrodiscal foraminal narrowing but without foraminal neural impingement. There remains a normal central canal. There is minimal left-sided subarticular lateral recess stenosis, but without neural impingement. L5-S1: There is disc desiccation, collapse intervertebral disc, facet arthrosis, with a 7 mm retrolisthesis of the L5 vertebra relationship to the S1 vertebra. There is diffuse uncovering the annulus with posterior foraminal endplate spondylosis. The combined processes have produced mild foraminal impingement upon the exiting left L5 nerve root (sagittal T1 series 3, images 1-2). There is mild left-sided foraminal stenosis but without neural impingement. There remains a normal central canal. Sacral Alae: Normal. Retroperitoneum and Paraspinal Structures Kidneys: Partially imaged with no demonstrated abnormality. Aorta: Normal. Inferior Vena Cava: Normal. Lymph Nodes: None visualized. Muscles (Paraspinal): Normal. MRI/Spine Lumbar (Routine) IMPRESSION: 1. Multilevel degenerative disc disease, endplate spondylosis and facet arthrosis. 2. L4-5 small right foraminal disc protrusion with facet arthrosis producing retrodiscal foraminal narrowing but without neural impingement. 3. Retrolisthesis the L5 vertebra with facet arthrosis, annular bulging and endplate spondylosis producing mild impingement upon the exiting left L5 nerve root. Electronically Signed: Ang Armas DO at 14:48 EDT Tel , Service support ,
== END ==
PROVIDERS: PCP Family Medicine; Referring Provider Physician Assistant; Visit Provider Physician Assistant
DX: M54.16 Radiculopathy, lumbar region (principal); M21.371 Foot drop, right foot
CPT/HCPCS: 72148

== ENCOUNTER 2019-08-26 17:12 | Observation (INO) | payer MEDICAID, SELFPAY ==
[2019-06-23 09:50] VITALS: BMI 21.9
[2019-08-26] VITALS (8 sets, daily range): BP systolic 108–148; BP diastolic 68–88; PULSE 70–88; RESP 10–16; TEMP 36.3–36.9; O2SAT 83–100; BMI 21.5; BMI 21.4
[2019-08-26] MEDS: Naloxone 0.4 MG/ML Syringe IV (17:17)
--- NOTE | 2019-08-26 17:20 | ED.RN ---
patient unable to stay awake, not answering questions appropriately. dr shultz at bedside, 2mg narcan given IV per MD orders. Pt now awake and talking admits to using heroin today.
--- NOTE | 2019-08-26 17:30 | CT_ITS ---
STUDY: CT BRAIN WITHOUT CONTRAST REASON FOR EXAM: Male, 54 years old. OVERDOSE, AMS, TRAUMA RADIATION DOSAGE (If Supplied By Facility): CTDIvol = ( 60.81 ) mGy, DLP = ( 1067.08 ) mGycm TECHNIQUE: Transaxial CT imaging of the brain was performed without administration of intravenous contrast material. Individualized dose optimization techniques were used for this CT. COMPARISON: February 14, 2019 FINDINGS: Normal soft tissue structures. Normal calvarium. Normal size ventricles and extra-axial spaces for the patient''s age. Normal white matter tracts of the cerebral hemispheres. Normal basal ganglia and thalami. Normal brainstem. Normal cerebellum. There is no intracranial hemorrhage. There are no findings of an acute ischemic infarction. There is minor mucosal thickening of the maxillary and ethmoid sinuses CT/Brain/Head without Contrast IMPRESSION: Normal unenhanced CT scan of the brain. Minor bilateral maxillary and ethmoid sinus disease Electronically Signed: León Mcgowan MD at 19:04 EDT , Service support ,
--- NOTE | 2019-08-26 17:53 | ED.RN ---
pt took 114 xanax in 4 days per prescription bottles
[2019-08-26 18:18] LABS: Absolute Lymphocyte Count 2.53 X10^3/uL (0.83-4.51); Absolute Neutrophil Count 8.2 X10^3/uL (2.0-7.7); Basophil# 0.05 X10^3/uL; Basophil% 0.4 % (0-1); Eosinophils% 0.8 % (0-5); Hematocrit 42.7 % (40-54); Hemoglobin 13.7 g/dL (13.0-16.5); Lymphocyte # 2.53 X10^3/ul (4.0); Lymphocyte % 21.2 % (19-41); Mean Corp Hgb Conc 32.1 g/dL (32-36); Mean Corpuscular Hgb 29.8 pg (27.0-32.0); Mean Corpuscular Volume 92.8 fL (80-94); Mean Platelet Vol. 9.9 fl (6.2-12.0); Monocyte# 0.99 X10^3/uL; Monocyte% 8.3 % (0-10); NRBC Flagged by Analyzer 0 % (0-5); Neutrophil # 8.23 X10^3/uL (2.7-7.7); Platelet Count 198 K/mm3 (150-450); RBC Distribution Width CV 14.1 % (11.6-14.6); RBC Distribution Width SD 47.7 fl (35.1-43.9); White Blood Count 11.9 K/mm3 (4.4-11.0)
--- NOTE | 2019-08-26 18:20 | RAD_ITS ---
STUDY: X-RAY CHEST REASON FOR EXAM: Male, 54 years old. AMS, patient unable to follow breathing instructions very well TECHNIQUE: AP portable COMPARISON: February 14, 2019 FINDINGS: There is less than optimal inspiratory effort and subsegmental atelectasis in the right lower lobe. There is no demonstrated pleural abnormality. Normal size heart. Normal mediastinum and tayler. Normal visualized pulmonary arteries. Normal visualized aortic arch and descending thoracic aorta. Normal visualized thoracic spine. Normal visualized ribs, clavicles, and shoulders. There is no demonstrated abnormality of the visualized soft tissue structures of the upper abdomen. RAD/Chest 1 View (Portable) IMPRESSION: Diminished inspiratory effort and mild right basilar atelectasis Electronically Signed: León Mcgowan MD at 18:47 EDT , Service support ,
[2019-08-26 18:30] LABS: Anion Gap 6 (5-15); BUN 17 mg/dL (7-18); BUN/Creat Ratio 19.4 RATIO (10-20); Calcium,Total 8.7 mg/dL (8.5-10.1); Chloride 106 mmol/L (98-107); Creatinine, Serum 0.88 mg/dL (0.70-1.30); EST Glomerular Filtration Rate 96 mL/min (>60); Est Glom Filt Rate - Afr Amer 116 mL/min (>60); Estimated Creatinine Clearance 91.28 ml/min; Glucose 79 mg/dL (74-106); Potassium 3.9 mmol/L (3.5-5.1); Sodium Level 142 mmol/L (136-145)
--- NOTE | 2019-08-26 18:35 | ED.DCSUM_ITS ---
- ER Visit Summary Date of Service: 08/26/19 Chief Complaint: Altered mental status History of Present Illness: The patient is a 54 M presenting with altered mental status. Per patient's sister he has not been acting right and has been out of it since Sunday. She states he had medications filled on Sunday and has been overtaking them. He had 120, 1 mg Xanax filled on August 21 and only has 8 left. She states yesterday he went to someone's house and came back lethargic. Patient is unable to contribute to history. Physical Examination: Blood pressure 124/71, heart rate 88, respiratory rate 10, pulse ox 83% on room air. Patient is afebrile. HEENT exam is unremarkable. Neck is supple, nontender Lungs are decreased respirations, lungs are clear Heart is regular rate and rhythm. Abdomen is soft nontender nondistended. Extremities are unremarkable. Skin is warm and dry. No focal neurologic deficit. Arousable to voice Remainder of exam is unremarkable. Emergency Department Course and Treatment: Patient was given Narcan on arrival. He had improvement of his symptoms following Narcan. He admits to heroin use. He admits to taking more Xanax than prescribed. He states some of them may have been stolen. CBC shows a white count 11.9. Chemistries unremarkable. Patient states he is unsure if he has fallen down recently. Chest x-ray shows diminished inspiratory effort and mild right basilar atelectasis. CT head was obtained and shows normal unenhanced CT scan of the brain. Minor bilateral maxillary and ethmoid sinus disease Patient remains hemodynamically stable in the ED. CBC shows white count 11.9. Chemistries unremarkable. Alcohol less than 3.0. Tox positive for opiates and benzos. Discussed with the hospitalist for observation. Disposition: Observation Impression: Polysubstance abuse, overdose This note was generated with [employer] dictation software. It may contain incorrect words, spelling, and punctuation that were not noted in review of the chart prior to signing ED Disposition - Plan for ED Patient: Referrals: Jessee Lawrence DO [Primary Care Provider] -
[2019-08-26 19:03] LABS: Alcohol, Blood (Medical)-Serum < 3.0 mg/dL
[2019-08-26 19:34] LABS: Amphetamine Urine VISTA NEGATIVE (<1000 ng/mL); Barbiturate Urine VISTA NEGATIVE (< 200 ng/mL); Benzodiazepine Urine VISTA POSITIVE (< 200 ng/mL); Cocaine Urine VISTA NEGATIVE (< 300 ng/mL); Ecstacy Urine VISTA NEGATIVE (< 500 ng/mL); Methadone Urine VISTA NEGATIVE (< 300 ng/mL); PCP Urine VISTA NEGATIVE (< 25 ng/mL); THC Urine VISTA NEGATIVE (< 50 ng/mL); Vista UDS pH Range 5
--- NOTE | 2019-08-26 20:29 | HP.PCM_ITS ---
Problem List (1) Acute respiratory failure with hypoxia Status: Acute (2) Overdose Status: Acute Qualifiers: Encounter type: initial encounter Injury intent: accidental or unintentional Qualified Code(s): T50.901A - Poisoning by unspecified drugs, medicaments and biological substances, accidental (unintentional), initial encounter (3) Xanax use disorder, severe Status: Chronic (4) Heroin abuse Status: Chronic (5) Anxiety and depression Status: Chronic (6) Tobacco use Status: Chronic History of Present Illness Date of Admission: 08/26/19 Chief Complaint: Lethargic, MS change The patient is a 54 y/o M w/ P MHx: Anxiety and Depression, Tobacco use, Polysubstance abuse with Heroine (snorted) and Xanax, Chronic Back Pain who presents to the [facility] ED on 08/26/19 with history of filling a prescription for Xanax (120 tablets) noted per his sister with whom he lives who is not a substance user to be fatigued and noted his behavior was off since the Sunday he had filled his medications however on day of presentation he was visiting a friend's house and became very fatigued and lethargic prompting transition to the ED given unresponsiveness and worsening respiratory status with perioral blue color change. Patient Xanax bottle noted to only have 8 tablets left upon arrival. Patient administered immediately Narcan with clinical improvement. Patient did admit following improvement to abuse of Xanax and also snorting heroin which she had done prior to ED presentation. Patient very specifically denies any suicidal ideations or any intentions to kill himself with this overdose. Work-up in the ED included T 97.4, heart rate 88, BP 129/71, initial respiratory rate 10, initially 83% on room air with repeat 100% on room air, CBC with WBC 11.9, hemoglobin 13.7, platelet 198 with left shift, unremarkable BMP, UDS with positive opiates and benzodiazepines, ethyl alcohol less than 3, x-ray with diminished inspiratory effort and mild right basilar atelectasis, CT brain unremarkable with minor bilateral maxillary and ethmoid sinus disease. In the ED patient administered Narcan. Past Medical History Past Medical History (Chronic Problems): Chronic Problems Xanax use disorder, severe (Chronic) Heroin abuse (Chronic) Anxiety and depression (Chronic) Tobacco use (Chronic) Medical History: Medical History (Last Reviewed 01/20/19 @ 13:02 by Arlene Metcalf) Anxiety F41.9 Allergies naproxen [From Naprosyn] Allergy (Intermediate, Verified 08/26/19 17:15) Rash codeine phosphate [From Tylenol-Codeine #3] Allergy (Verified 08/26/19 17:15) Rash methadone [Methadone] Allergy (Verified 08/26/19 17:15) Other propoxyphene HCl [From Darvon] Adverse Reaction (Intermediate, Verified 08/26/19 17:15) Upset Stomach propoxyphene napsylate [From Darvocet-N 100] Adverse Reaction (Verified 08/26/19 17:15) Upset Stomach Home Medications: Ambulatory Orders Medication Instructions Recorded Alprazolam [Xanax] 1 mg PO 4X/DAY 12/02/16 Hydroxyzine HCl 50 mg PO BID PRN PRN 02/14/19 zolpidem 10 mg tablet 10 mg PO QHS PRN 06/23/19 Surgical History: Surgical History (Last Reviewed 01/20/19 @ 13:02 by Arlene Metcalf) H/O repair of right rotator cuff Z98.890 11/14/17 h/o tonsilectomy Surgical History: - - Right shoulder surgery, tonsillectomy, appendectomy. Psychiatric History: Anxiety, Depression Lives: - - Patient lives with his sister. Patient notes that his sister does not use any illicit substances. Smoking Status: Current every day smoker - Patient smokes approximately 14 cigarettes daily. Tobacco Use: Cigarettes Alcohol: None Drugs: Heroin - Snorted., - - Xanax abuse concurrently. - *Family History Maternal History Items: Cancer, Diabetes Paternal History Items: Cancer, Diabetes Review of Systems Constitutional: Reports: Malaise, Weakness, Fatigue. Denies: Anorexia, Chills, Fever, Weight Change HEENT: Denies: Head Aches, Sinus Congestion, Sinus Drainage Cardiovascular: Denies: Chest Pain, Palpitations Respiratory: Reports: Shortness of Breath, Shortness of breath at rest, Shortness of breath upon exertion, - - Unresponsive episode with respiratory distress.. Denies: Cough, Sputum production Gastrointestinal: Denies: Abdominal Pain, Nausea, Vomiting Genitourinary: Denies: Dysuria Musculoskeletal: Reports: Back Pain, Joint Pain. Denies: Joint Tenderness Skin: Denies: Rash, Wounds Neurological: Reports: - - Unresponsive episode.. Denies: Focal weakness, Numbness, Tingling Psychiatric: Denies: Anxiety, Depression, Homicidal Ideations, Suicidal Ideations Hematologic/ Lymphatic: Denies: Easy Bruising, Easy Bleeding VTE Information - Inpt Only VTE Present on Admission: No VTE Mechan Device Prophylaxis: None VTE Pharm Prophylaxis ordered?: No Reason prophylaxis not ordered:: Treatment Not Indicated Patient Problems: Active and Suspected Problems (Last Reviewed 01/20/19 @ 13:02 by Arlene Metcalf) Acute respiratory failure with hypoxia (Acute) Overdose (Acute) Subjective: Patient seated upright in the bed, fatigued appearing, recent Narcan with more alert status. Objective: Physical Examination: General: awake, alert, oriented health, place, recent events, admits to heroin snorting as well as Xanax abuse, currently cooperative, notes that he takes these agents because he has chronic back pain, seated upright in the ED bed, currently no distress. Skin: normal color, turgor, no icterus, cyanosis. HEENT: AT/NC, EOMI, PERRLA, dry MM, poor dentition, no carotid bruits or JVD noted. Lungs: Diminished breath sounds, greater bases, moderate effort, no obvious current distress, improved since initial presentation as had been hypoxic with increased work of breathing accessory muscle usage as well as noted to have perioral cyanosis, no rales, ronchi or wheezing. Heart: Regular rate and rhythm; no gallop, rub audible. Abdomen: soft, NTTP, ND, normal BS, no HSM. Extremities: no cyanosis, clubbing, or edema. Neurological: patient awake, alert, oriented as noted; cognitive function improving and nearing baseline intact; pupils equally reactive to light and accomodation; cranial nerves II-XII grossly normal, moving all 4 extremities, no focal deficits, strength severely global decrease secondary to acute presentation and still fatigued. Psychiatric: affect appears lethargic, fatigued, no acute evidence of depressive or anxiety feelings. - Physical Exam Vitals/I&O's: Vital Signs Temp Pulse Resp BP Pulse Ox 97.4 F L 77 14 108/68 100 08/26/19 17:13 08/26/19 20:01 08/26/19 20:01 08/26/19 20:01 08/26/19 20:01 Oxygen Delivery Method Room Air Weight: 150 lb Body Mass Index (BMI) 21.5 Finger Stick Blood Glucose 83 Laboratory Results 08/26/19 18:10: Ethyl Alcohol < 3.0 08/26/19 18:10: WBC 11.9 H, RBC 4.60, Hgb 13.7, Hct 42.7, MCV 92.8, MCH 29.8, MCHC 32.1, RDW Std Deviation 47.7 H, RDW Coeff of Anette 14.1, Plt Count 198, MPV 9.9, Immature Gran % (Auto) 0.300, Neut % (Auto) 69.0, Lymph % (Auto) 21.2, [place] % (Auto) 8.3, Eos % (Auto) 0.8, Baso % (Auto) 0.4, Absolute Neuts (auto) 8.2 H, Absolute Lymphs (auto) 2.53, Nucleated RBC % 0 08/26/19 18:10: Sodium 142, Potassium 3.9, Chloride 106, Carbon Dioxide 30.0, Anion Gap 6, BUN 17, Creatinine 0.88, Estim Creat Clear Calc 91.28, Est GFR (MDRD) Af Amer 116, Est GFR (MDRD) Non-Af 96, BUN/Creatinine Ratio 19.4, Glucose 79, Calcium 8.7 08/26/19 19:15: Urine Opiates Screen POSITIVE H, Urine Methadone Screen NEGATIVE, Ur Barbiturates Screen NEGATIVE, Ur Phencyclidine Scrn NEGATIVE, Ur Amphetamines Screen NEGATIVE, U Methamphetamin-MDMA NEGATIVE, U Benzodiazepines Scrn POSITIVE H, Urine Cocaine Screen NEGATIVE, U Cannabinoids Screen NEGATIVE, Ur Drug Screen Comment Assessment/Plan All Active Problems (Last Reviewed 01/20/19 @ 13:02 by Arlene Metcalf) Acute respiratory failure with hypoxia (Acute) Overdose (Acute) Asthma (Acute) Bronchitis (Acute) Overdose (Acute) Hypotension (Acute) The patient is a 54 y/o M w/ P MHx: Anxiety and Depression, Tobacco use, Polysubstance abuse with Heroine (snorted) and Xanax, Chronic Back Pain who pres ents to the [facility] ED on 08/26/19 with history of behavioral changes with increased fatigue following recent fill of his Xanax and on day of ED presentation unresponsive episode with obvious respiratory distress. 1. Acute Hypoxic Respiratory Failure secondary to Acute Encephalopathy secondary to Acute Opiate and BZD Overdose secondary to Polysubstance Abuse with concern for Aspiration: Given significant hypoxia with low oxygenation initially will admit to MedSurg on telemetry, continue to closely monitor, continue PRN Narcan if recurrent lethargy or hypoxia, repeat chest x-ray in a.m., given improvement will allow diet, updated primary care physician about patient's presentation including heroin abuse and Xanax misuse, consultation with case management for substance abuse. 2. Polysubstance Abuse: Denies IVDA but poor historian given acute presentation, will obtain HIV and hepatitis panel. Patient currently not candidate for hep C treatment currently as needs to be clean, sober x 6 months, documented attendance NA or AA meetings, counseling and ongoing negative drug screens. Updated PCP about current presentation including heroin use and abuse of xanax. 3. Tobacco Abuse: Encouraged cessation, inpatient consultation per RT, NR if desired. 4. Chronic back pain: Contributes to presentation, consultation with case management given substance abuse and may need referral to chronic pain specialist. 5. GERD: We will maintain on famotidine. 6. Anxiety and depression: Not on regimen, may benefit as possibly contributing to presentation. 7. DVT prophylaxis: Low risk, encourage ambulation. OBSV E&M: [id number] Initial observation care L3
[2019-08-26] MEDS: 0.9% Normal Saline 1,000 ML 100 ML IV (22:06)
[2019-08-26] MEDS: 0.9% Saline Lock 10 ML Syringe IV (22:06)
--- NOTE | 2019-08-26 23:43 | NURSING ---
21 mg Nicotine patch removed from right shoulder at this time, disposed of and new 14 mg nicotine patch applied to left shoulder at this time.
[2019-08-27] VITALS (10 sets, daily range): BP systolic 115–142; BP diastolic 66–93; PULSE 67–84; RESP 16–18; TEMP 36.6–37; O2SAT 95–96
[2019-08-27] MEDS: Acetaminophen 325 MG Tablet 650 MG PO (00:39)
--- NOTE | 2019-08-27 02:10 | NURSING ---
Pt noted to have dropped 2 pills upon standing to ambulate to restroom. Pt questioned if he had any more pills, and he stated Yes, I'm sorry I forgot I had some in here and proceeds to present to this RN a few pills from an inhaler he had in his pocket. Pills counted with charge account authorizer and locked in med room drawer.
[2019-08-27] MEDS: Ketorolac 30 MG/ML Syringe IV (04:20)
--- NOTE | 2019-08-27 05:02 | RAD_ITS ---
STUDY: X-RAY CHEST REASON FOR EXAM: Male, 54 years old. DYSPNEA, COUGH, OVERDOSE TECHNIQUE: Frontal view COMPARISON: None. FINDINGS: The lungs are clear and expanded. There is no demonstrated pleural abnormality. Normal size heart. Normal mediastinum and tayler. Normal visualized pulmonary arteries. Normal visualized aortic arch and descending thoracic aorta. Normal visualized thoracic spine. Normal visualized ribs, clavicles, and shoulders. There is no demonstrated abnormality of the visualized soft tissue structures of the upper abdomen. RAD/Chest 1 View (Portable) IMPRESSION: Normal x-ray examination of the chest. Electronically Signed: Pablo Yoon MD at 6:30 EDT , Service support ,
[2019-08-27 06:03] LABS: Absolute Lymphocyte Count 2.77 X10^3/uL (0.83-4.51); Absolute Neutrophil Count 4.4 X10^3/uL (2.0-7.7); Basophil# 0.06 X10^3/uL; Basophil% 0.7 % (0-1); Eosinophil# 0.24 X10^3/uL; Hematocrit 36.8 % (40-54); Hemoglobin 11.8 g/dL (13.0-16.5); Lymphocyte # 2.77 X10^3/ul (4.0); Lymphocyte % 34.5 % (19-41); Mean Corp Hgb Conc 32.1 g/dL (32-36); Mean Corpuscular Hgb 29.9 pg (27.0-32.0); Mean Corpuscular Volume 93.2 fL (80-94); Mean Platelet Vol. 10.3 fl (6.2-12.0); Monocyte# 0.54 X10^3/uL; Monocyte% 6.7 % (0-10); NRBC Flagged by Analyzer 0 % (0-5); Neutrophil # 4.39 X10^3/uL (2.7-7.7); Neutrophil % 54.9 % (47-70); Platelet Count 188 K/mm3 (150-450); RBC Distribution Width SD 47.8 fl (35.1-43.9); Red Blood Count 3.95 M/mm3 (4.6-6.2)
[2019-08-27 06:20] LABS: ALB/GLOB Ratio 1.1 RATIO (0.9-2.4); AST(SGOT) 91 U/L (15-37); Alanine Aminotransfer ALT/SGPT 52 U/L (16-61); Albumin, Serum 2.9 g/dL (3.2-5.0); Alkaline Phosphatase 49 U/L (45-117); Anion Gap 6 (5-15); BUN 16 mg/dL (7-18); BUN/Creat Ratio 20.7 RATIO (10-20); Calcium,Total 8.2 mg/dL (8.5-10.1); Chloride 108 mmol/L (98-107); Creatinine, Serum 0.77 mg/dL (0.70-1.30); EST Glomerular Filtration Rate 111 mL/min (>60); Est Glom Filt Rate - Afr Amer 134 mL/min (>60); Estimated Creatinine Clearance 104.26 ml/min; Globulin 2.7 g/dL (2.2-4.2); Glucose 118 mg/dL (74-106); Potassium 3.3 mmol/L (3.5-5.1); Protein, Total 5.6 g/dL (6.4-8.2); Sodium Level 142 mmol/L (136-145)
--- NOTE | 2019-08-27 07:55 | NURSING ---
Patient called out and states he wants something for pain and anxiety. hospice educator paged Dr. Che to report patient request. Dr. Che ordered naproxen for patient. He states he does not want this. He wants his regular meds he states he is anxious and painful. He states he wants to leave. This RN got AMA papers and patient signed. IV sites were taken out. Dr. Che called and states he is coming to see patient.
[2019-08-27 08:50] LABS: HIV - WCH Non-Reactive (Nonreactive); Hepatitis B Surface Antibody Non-Reactive; Hepatitis B Surface Antigen Non-Reactive (Nonreactive); Hepatitis C Antibody Non-Reactive (Nonreactive)
[2019-08-27] MEDS: oxyCODONE CR 15 MG Tablet PO ×2 (09:03→22:10)
[2019-08-27] MEDS: Famotidine 20 MG Tablet PO ×2 (09:05→22:10)
[2019-08-27] MEDS: LORazepam 1 MG Tablet 2 MG PO (09:40)
[2019-08-27] MEDS: oxyCODONE 5 MG Tablet PO ×4 (09:47→22:11)
--- NOTE | 2019-08-27 10:53 | PN_ITS ---
Patient Problems: Active and Suspected Problems (Last Reviewed 01/20/19 @ 13:02 by Arlene Metcalf) Acute respiratory failure with hypoxia (Acute) Overdose (Acute) Reason for Visit: Heroin overdose although patient claims he is not on opioids. Objective: Seen and examined. About 7:30 AM patient was about to sign AMA secondary to uncontrolled severe back pain. Patient states he has protruded disc in lumbar vertebra L4-L5 and L5-S1 he has chronic back pain for more than 5 years but had recent trauma garland stained after a fall in May 2019 as per MRI report done on June 27, 2019. Patient is on Xanax 1 mg 4 times daily prescribed for long time about 2 to 3 years. Patient also used to inhale/snort heroin for pain relief probably abused street drugs. As per nighttime hospitalist note, RN noted blue and white pill fell out of his underwear in the restroom, looks similar to MS Uriel. I advised the patient to stay for better control of back pain but stated will not be able to prescribe opioids or benzodiazepines or other controlled substance at the time of discharge. Vitals/I&O's: Vital Signs Temp Pulse Resp BP Pulse Ox 97.8 F 67 18 115/66 96 08/27/19 04:22 08/27/19 07:32 08/27/19 04:22 08/27/19 04:22 08/27/19 04:22 Oxygen Delivery Method Room Air Weight: 149 lb 14.629 oz Body Mass Index (BMI) 21.4 Finger Stick Blood Glucose 83 Intake and Output for Last 24 Hours 08/25/19 08/26/19 08/27/19 23:59 23:59 23:59 Intake Total 1786.67 / 1786.67 Balance 1786.67 / 1786.67 General: Alert, Oriented x3, Cooperative HEENT: Atraumatic, PERRLA, EOMI, Normocephalic Neck: Supple, No JVD, Negative Carotid Bruits Lungs: Clear to auscultation, Normal air movement Cardiovascular: Regular rate, Regular Rhythm, Normal S2, No murmurs Abdomen: Bowel Sounds Present, Soft, Non Tender, Non-Distended Extremities: No edema, Capillary Refill Less than 3 Seconds Skin: No rashes, No breakdown Musculoskeletal: Arthritic Changes, Tenderness - Tenderness over lumbar L3-S1 vertebrae along with tenderness over paraspinal muscles. Neurological: Cranial nerves II-XII grossly intact Psych/Mental Status: Normal Affect, Appropriate Laboratory Results 08/26/19 18:10: Ethyl Alcohol < 3.0 08/26/19 18:10: WBC 11.9 H, RBC 4.60, Hgb 13.7, Hct 42.7, MCV 92.8, MCH 29.8, MCHC 32.1, RDW Std Deviation 47.7 H, RDW Coeff of Anette 14.1, Plt Count 198, MPV 9.9, Immature Gran % (Auto) 0.300, Neut % (Auto) 69.0, Lymph % (Auto) 21.2, [place] % (Auto) 8.3, Eos % (Auto) 0.8, Baso % (Auto) 0.4, Absolute Neuts (auto) 8.2 H, Absolute Lymphs (auto) 2.53, Nucleated RBC % 0 08/26/19 18:10: Sodium 142, Potassium 3.9, Chloride 106, Carbon Dioxide 30.0, Anion Gap 6, BUN 17, Creatinine 0.88, Estim Creat Clear Calc 91.28, Est GFR (MDRD) Af Amer 116, Est GFR (MDRD) Non-Af 96, BUN/Creatinine Ratio 19.4, Glucose 79, Calcium 8.7 08/26/19 19:15: Urine Opiates Screen POSITIVE H, Urine Methadone Screen NEGATIVE, Ur Barbiturates Screen NEGATIVE, Ur Phencyclidine Scrn NEGATIVE, Ur Amphetamines Screen NEGATIVE, U Methamphetamin-MDMA NEGATIVE, U Benzodiazepines Scrn POSITIVE H, Urine Cocaine Screen NEGATIVE, U Cannabinoids Screen NEGATIVE, Ur Drug Screen Comment 08/27/19 05:35: WBC 8.0, RBC 3.95 L, Hgb 11.8 L, Hct 36.8 L, MCV 93.2, MCH 29.9, MCHC 32.1, RDW Std Deviation 47.8 H, RDW Coeff of Anette 14.0, Plt Count 188, MPV 10.3, Immature Gran % (Auto) 0.200, Neut % (Auto) 54.9, Lymph % (Auto) 34.5, [place] % (Auto) 6.7, Eos % (Auto) 3.0, Baso % (Auto) 0.7, Absolute Neuts (auto) 4.4, Absolute Lymphs (auto) 2.77, Nucleated RBC % 0 08/27/19 05:35: Sodium 142, Potassium 3.3 L, Chloride 108 H, Carbon Dioxide 28.0, Anion Gap 6, BUN 16, Creatinine 0.77, Estim Creat Clear Calc 104.26, Est GFR (MDRD) Af Amer 134, Est GFR (MDRD) Non-Af 111, BUN/Creatinine Ratio 20.7 H, Glucose 118 H, Calcium 8.2 L, Total Bilirubin 0.20, AST 91 H, ALT 52, Alkaline Phosphatase 49, Total Protein 5.6 L, Albumin 2.9 L, Globulin 2.7, Albumin/Globulin Ratio 1.1 08/27/19 05:35: Hep Bs Antigen Non-Reactive, Hep Bs Antibody Non-Reactive, Hepatitis C Antibody Non-Reactive, HIV 1&2 Antibody Non-Reactive Current Medications Acetaminophen (Tylenol) 650 mg PO Q6H PRN PRN PRN Reason: Pain Score 1-10/Temp > 100.7 F Last Admin: 08/27/19 00:39 Dose: 650 mg Documented by: Al Hydroxide/Mg Hydroxide (Mylanta Ii) 30 ml PO Q6H PRN PRN PRN Reason: Gastric Burning Albuterol Sulfate (Ventolin Aerosols) 2.5 mg INHALATION Q2H PRN PRN PRN Reason: Dyspnea, wheezing Bisacodyl (Dulcolax) 10 mg RECTAL DAILY PRN PRN Reason: Constipation Dextrose (D50w Syringe) 0 gm IV X1 PRN; Protocol PRN Reason: Hypoglycemia Dicyclomine HCl (Bentyl) 20 mg PO Q6H PRN PRN PRN Reason: abdominal discomfort Famotidine (Pepcid) 20 mg PO BID [facility] Last Admin: 08/27/19 09:05 Dose: 20 mg Documented by: Folic Acid (Folic Acid) 1 mg PO DAILY@0800 [facility] Gabapentin (Neurontin) 300 mg PO Q8H PRN PRN PRN Reason: moderate to severe anxiety Glucagon () 1 mg IM .X1 PRN PRN Reason: Hypoglycemia Guaifenesin (Robitussin) 20 ml PO Q4H PRN PRN PRN Reason: COUGH Hydralazine HCl (Apresoline Iv) 10 mg IV Q4H PRN PRN PRN Reason: SBP > 160 Hydroxyzine Pamoate (Vistaril Pamoate Capsule) 50 mg PO Q4H PRN PRN PRN Reason: mild anxiety Sodium Chloride () 1,000 mls @ 100 mls/hr IV .Q10H [facility] Last Infusion: 08/27/19 07:58 Dose: Infused Documented by: Ketorolac Tromethamine (Toradol (Bkc)) 30 mg IV Q6H PRN PRN PRN Reason: pain score 6-10/10 Loperamide HCl (Imodium) 2 mg PO Q4H PRN PRN PRN Reason: LOOSE STOOLS Lorazepam (Ativan) 1 mg PO Q4H [facility]; Taper Stop: 08/31/19 21:59 Melatonin (Melatonin) 3 mg PO QHS PRN PRN PRN Reason: INSOMNIA Naloxone HCl (Narcan) 0.4 mg IV X1 PRN PRN Reason: recurrent lethargy, hypoxia Naproxen (Naprosyn) 500 mg PO BID PRN PRN PRN Reason: pain score 4-5/10 Nicotine (Nicoderm Cq (Pbkc)) 14 mg TRANSDERM. DAILY [facility] Last Admin: 08/27/19 09:40 Dose: 14 mg Documented by: Ondansetron HCl (Zofran) 4 mg IV Q8H PRN PRN PRN Reason: NAUSEA/VOMITING Ondansetron HCl (Zofran Odt) 8 mg PO Q8H PRN PRN PRN Reason: NAUSEA Oxycodone HCl (Oxycontin) 15 mg PO BID [facility] Last Admin: 08/27/19 09:03 Dose: 15 mg Documented by: Oxycodone HCl (Oxyir) 5 mg PO Q4H PRN PRN PRN Reason: Pain Score 6-10/10 Last Admin: 08/27/19 09:47 Dose: 5 mg Documented by: Prochlorperazine Edisylate (Compazine Iv) 5 mg IV Q4H PRN PRN PRN Reason: Breakthrough nausea/vomiting Psyllium Hydrophilic Mucilloid (Metamucil) 1 packet PO DAILY PRN PRN PRN Reason: Constipation Senna/Docusate Sodium (Senokot-S, Alexandra-Colace) 2 tablet PO BID PRN PRN PRN Reason: Constipation Sodium Chloride () 10 - 40 ml IV UD PRN PRN Reason: SALINE FLUSH Last Admin: 08/26/19 22:06 Dose: 10 ml Documented by: Thiamine HCl (Vitamin B1) 100 mg PO DAILYCM MERRY Throat Lozenges (Cepacol Sore Throat Lozenge) 1 lozenge MUCOUS MEM Q2H PRN PRN PRN Reason: SORE THROAT Trazodone HCl (Desyrel) 100 mg PO QHS PRN PRN Reason: INSOMNIA STROKE Vital Signs/Narrative: Vital Signs Pulse 08/27/19 07:32 67 Medical Necessity - Tobacco Use Smoking Status: Current every day smoker - Patient smokes approximately 14 cigarettes daily. Tobacco Use: Cigarettes Assessment/Plan All Active Problems (Last Reviewed 01/20/19 @ 13:02 by Arlene Metcalf) Acute respiratory failure with hypoxia (Acute) Overdose (Acute) Asthma (Acute) Bronchitis (Acute) Overdose (Acute) Hypotension (Acute) The patient is a 54 y/o M with history of anxiety and Depression, Tobacco use /cigarette smoke, Polysubstance abuse with Heroine (snorted) and Xanax, Chronic Back Pain with L4-L5, L5-S1 disc protrusion, sciatica in nature was admitted on [facility]Sur floor for history of behavioral changes, drug overdose with heroin resulting into unresponsive episode with obvious respiratory distress. Patient was given Narcan in ER. As per EMS, patient was found unresponsive with worsening respiratory status, perioral cyanosis with GI next bottle about 8 tablets left although he filled his prescription of Xanax 120 tablet about 3 to 4 days ago. 1. Acute hypoxic respiratory failure secondary to acute encephalopathy from drug overdose possible opioid and benzodiazepine overdose with history of polysubstance use: There was a concern of aspiration but patient chest x-ray reported as normal. Patient vitals are within normal limit with no hypoxia or tachypnea. 2 chronic benzodiazepine use and dependence with intermittent opioid polysubstance use and dependence: Patient denies street opioid use including Percocet or snorting heroin in the last 2 to 3 years but is noted on before admission for pain control. Started on Ativan 1 mg protocol along with other supportive medications for control of benzodiazepine withdrawal syndrome. Acute hepatitis panel and HIV are nonreactive. PCP was updated at nighttime hospitalist. About heroin and Xanax abuse. U tox positive of benzodiazepine and opioids. Elevated transaminases, AST and low albumin probably from drug/polysubstance abuse: T 91. Albumin 2.9. Total protein 5.6. 3. Tobacco Abuse: Encouraged cessation, on nicotine use. 4. Chronic back pain with disc protrusion and foraminal narrowing of L4-L5, L5- S1 vertebrae as per MRI in May 2019.: Patient was advised to follow-up pain management. For control of pain, started on oxycodone control is 50 mg twice daily and oxycodone 5 mg p.o. every 4 hourly as needed for breakthrough pain. 5. GERD: We will maintain on famotidine. 6. Anxiety and depression: 7. DVT prophylaxis: Low risk, encourage ambulation. Inpatient E&M: 58263 Subs Hosp L2
--- NOTE | 2019-08-27 11:20 | CASEMGMT ---
Social Work Note Pt is at [facility] for overdose, polysubstance abuse. Per H+P, pt's overdose was NOT a suicide attempt/intent. SW in to speak with pt. SW introduced self and role at [facility]. Pt is alert and orientated x3, pleasant during conversation. Pt states that he is staying with his sister at this time. Pt states previously independent with ADLs. PCP is Dr. Lawrence and Pharmacy is [facility]. Pt states he is not currently working due to his back pain. Pt states that he has Degenerative Disc Disease and have to find a back doctor and get a MRI. SW informed pt that his PCP should be able to assist with finding a back doctor. Pt states understanding. Pt states that he was having some back pain that wouldn't go away and a good friend of his told him that he had some heroin that he could use. Pt states that he went over to his friends home and used very little heroin but states it must've been laced with something since he overdosed. Pt states that he is prescribed Xanax and Naproxen and something to sleep. SW asked pt about Xanax as it was reported that pt took too many pills of his Xanax. Pt states I didn't take too many pills, I took what I usually do, the rest of my pills were stolen. Pt states that he only takes his medications as prescribed and doesn't take more than is prescribed. Pt again states that he overdosed only because he used heroin that was laced with something else. Pt admits that taking the heroin was a stupid decision. Pt states that he used to use heroin but has been clean for 10-15 years until this recent time that he used. Pt denied any other substance abuse. Pt states that he has history of anxiety and depression. Pt states that he see's. Dr. Love, psychiatrist at [facility] one time every 3 months for medications. SW asked pt about individual counseling. Pt denied any current individual counseling states that the last time he was in individual counseling was about 10 years ago when pt saw a counselor named Jessee at [facility]. Pt denied wanting to initiate in individual counseling at this time. SW informed pt that with him already being linked up with [facility] he could begin individual counseling with them anytime that he feels the need to do so. Pt states understanding. Pt confirms that his overdose was NOT a suicide attempt and denied suicidal intent. Pt denied any current suicidal thoughts/plans/ideations. Pt states that he was never a anxious person until his daughter when she was 9 years old. Pt states it has been awhile since she and that is was initially sparked his anxiety. SW offered support to pt. Pt states that he was originally from [place], at 6 months moved to [place], returned to [place] at age 5-6 and then returned to [place] after. Pt states that he has children in [place]. Pt states that his sister told him that his children will need to come get him within three weeks as she doesn't want pt to live there anymore due to pt's recent overdose. Pt states that he will be returning to his sister's home at discharge and will work on getting to [place]. Pt tells this worker that he will never overdose again and he also told his sister this. SW discussed outlets for supports/coping skills. Pt states that he recently went back to pentecostal for the first time in 25 years. 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 Pt identifies zoroastrianism being good support/coping skill for pt. SW informed pt that [facility] has a motorcycle police if he would like to speak to the motorcycle police while he is at [facility]. Pt agreeable to referral being made to motorcycle police. SW offered much support to pt during conversation. Pt confirmed that his overdose was NOT a suicide attempt/intent and currently denied any suicidal thoughts/plans/ideations. Plan: Return home at discharge with resumption of psychiatrist services through [facility]. Pt identified zoroastrianism as good support for pt. Gabriella Medley HEAD OF COMMISSION DEPARTMENT, ORNAMENTER
--- NOTE | 2019-08-27 12:26 | CHAPLAIN ---
Type of Pastoral Visit _x__ Initial Visit ___ Follow-up Visit ___ On-call Visit ___ General Patient Visit ___ Spiritual Assessment ___ Family Conference ___ Bereavement ___ Rapid Response ___ Code Blue ___ Other (describe below) Pastoral Care Referral From _x__ Patient ___ Family ___ Nurse ___ Physician _x__ Track Welder ___ Slurry Tank Operator ___ Other (describe below) Sacrament/Intervention _x__ Active listening ___ Anointing ___ Mormon ___ Bereavement ___ Communion _x__ Taylor exploration ___ _x__ Life review _x__ Prayer ___ Reconciliation ___ Sacrament of Sick _x__ Supportive presence ___ Wedding ___ Other (describe below) Pastoral Comments patient states that he is not a drug user but took some heroin from a friend and overdosed; pt says that he has started going to amish again and wants to ask questions about taylor and the Bible; pt gives some life review and is agreeable for this lode miner blasting to call the tool sharpener of his amish for follow up; pt is talkative about life; pt acknowledges that he takes anxiety meds and asks prayer for that.
[2019-08-27] MEDS: LORazepam 1 MG Tablet PO ×3 (14:09→22:11)
[2019-08-28] MEDS: LORazepam 1 MG Tablet PO ×3 (02:07→10:17)
[2019-08-28] MEDS: oxyCODONE 5 MG Tablet PO ×3 (02:08→10:21)
[2019-08-28 02:12] VITALS: BP 149/90; PULSE 66; RESP 16; TEMP 36.4; O2SAT 97
[2019-08-28 03:58] VITALS: PULSE 65
[2019-08-28 07:31] VITALS: BP 138/91; PULSE 63; RESP 18; TEMP 36.8; O2SAT 97
[2019-08-28] MEDS: Thiamine Hydrochloride 100 MG Tablet PO (07:47)
[2019-08-28] MEDS: Folic Acid 1 MG Tablet PO (07:48)
[2019-08-28 09:18] VITALS: O2SAT 97
[2019-08-28 10:00] VITALS: PULSE 65
--- NOTE | 2019-08-28 10:14 | PCM.DC ---
- Discharge Diagnoses Current Active Problems: Current Active and Chronic Problems Acute respiratory failure with hypoxia (Acute) Overdose (Acute) Xanax use disorder, severe (Chronic) Heroin abuse (Chronic) Anxiety and depression (Chronic) Tobacco use (Chronic) You will use the following diet at home:: Regular Your food should be the consistency of: Regular Your liquids should be the consistency of: Regular/Thin Discharge Activity: May Not Drive Call your doctor if you observe: Fever of 101 or Higher, Coldness, Increased Pain, Inability to urinate, Inability to have a bowel movement, Shortness of breath, Fainting spells, Swelling in the ankles, Chest pain, Prolonged hiccoughing, Increased palpitations (irregular heartbeat), Calf discomfort, Uncontrolled pain Additional Instructions: Follow-up with anthony Gallego psychiatrist in 1 to 2 weeks for substance dependence of benzodiazepines and opioids. OR. Dr Lott in 2 weeks Allergies/Adverse Reactions: Allergies acetaminophen [From Tylenol-Codeine #3] Allergy (Verified 08/26/19 21:50) Itching codeine [From Tylenol-Codeine #3] Allergy (Verified 08/26/19 21:50) Itching propoxyphene HCl [From Darvon] Adverse Reaction (Intermediate, Verified 08/26/19 17:15) Upset Stomach propoxyphene napsylate [From Darvocet-N 100] Adverse Reaction (Verified 08/26/19 17:15) Upset Stomach Medications to take at Discharge Hydroxyzine HCl 50 mg PO BID PRN PRN 02/14/19 zolpidem 10 mg tablet 10 mg PO QHS PRN 06/23/19 Naproxen [Naprosyn] 500 mg PO BID PRN PRN 08/27/19 Alprazolam [Xanax] 0.5 mg PO 4X/DAY #0 08/28/19 Nicotine [Nicoderm] 14 mg TRANSDERM. DAILY #30 patch 08/28/19 Thiamine Hydrochloride [Vitamin B1] 100 mg PO DAILYCM #30 tab 08/28/19 The following prescriptions were given: Nicotine [Nicoderm] 14 mg TRANSDERM. DAILY #30 patch Transmission Status: Pending to [place] [id number] Thiamine Hydrochloride [Vitamin B1] 100 mg PO DAILYCM #30 tab Transmission Status: Pending to [place] [id number] Primary Care Physician: Jessee Lawrence DO [Primary Care Provider] - Please follow up with your Primary Care Physician in: in 1-2 weeks Test Results: Test results from this visit will be discussed in further detail at your follow-up appointment, if applicable. Please Follow Up With: Eloy Mckeon MD When: lumbar disc buldge with chr back pain in 1 week
[2019-08-28] MEDS: oxyCODONE CR 15 MG Tablet PO (10:16)
[2019-08-28] MEDS: Famotidine 20 MG Tablet PO (10:17)
--- NOTE | 2019-08-28 10:17 | PCM.DC.SUM ---
Discharge Date and Diagnosis Date of Admission: 08/26/19 Date of Discharge: 08/28/19 - Primary Discharge Diagnosis Acute Problems: Active Problems (Last Reviewed 01/20/19 @ 13:02 by Arlene Metcalf) Acute respiratory failure with hypoxia (Acute) Overdose (Acute) - Secondary Discharge Diagnosis Chronic Problems: Chronic Problems Xanax use disorder, severe (Chronic) Heroin abuse (Chronic) Anxiety and depression (Chronic) Tobacco use (Chronic) Hospital Course and Treatment Operations: None Summary of Care Provided: [] The patient is a 54 y/o M with history of anxiety and Depression, Tobacco use/cigarette smoke, Polysubstance abuse with Heroine (snorted) and Xanax, Chronic Back Pain with L4-L5, L5-S1 disc protrusion, sciatica in nature [facility] for history of behavioral changes, drug overdose with heroin resulting into unresponsive episode with obvious respiratory distress. Patient was given Narcan in ER. As per EMS, patient was found unresponsive with worsening respiratory status, perioral cyanosis with XANAX bottle about 8 tablets left although he filled his prescription of Xanax 120 tablet about 3 to 4 days ago. Patient had acute hypoxic respiratory failure secondary to acute encephalopathy from drug overdose, possible opioid/benzodiazepine overdose with history of polysubstance abuse: Chest x-ray reported normal. No hypoxia or tachypnea. Stable. Patient has history of chronic benzodiazepine use and dependence with intermittent opioid polysubstance use and dependence. Elevated transaminases most readily from polysubstance use. Hepatitis panel and HIV antibody test are nonreactive. Chronic tobacco use. Patient also has chronic back pain with lumbar disc protrusion at L4-L5, L5-S1 with foraminal narrowing and degenerative changes. Patient is advised to follow-up with pain management Dr. Martínez. Patient also advised to follow-up with anthony Gallego psychiatrist in 1 to 2 weeks for substance dependence of benzodiazepines and opioids. Discharge medication reconciliation done. Discharge follow-up instructions completed. Xanax was advised to taper off and as needed for anxiety/panic attack. Discharge process discussed with the patient and all questions were answered to patient's satisfaction. Total time spent, exact 35 minutes on discharge meds reconciliation, examination, coordination of care with nurses and ancillary staff, review of imaging and blood test and discussion with the patient on follow-up instructions Subjective: Seen and examined. BUSINESS ACCOUNT SPECIALIST score 1. Patient does not have symptoms and signs of benzodiazepine withdrawal or alcohol withdrawal or opioid withdrawal. - Physical Exam Vitals/I&O's: Vital Signs Temp Pulse Resp BP Pulse Ox 98.3 F 63 18 138/91 H 97 08/28/19 07:31 08/28/19 07:31 08/28/19 07:31 08/28/19 07:31 08/28/19 09:18 Oxygen Delivery Method Room Air Weight: 149 lb 14.629 oz Body Mass Index (BMI) 21.4 Finger Stick Blood Glucose 83 Intake and Output for Last 24 Hours 08/26/19 08/27/19 08/28/19 23:59 23:59 23:59 Intake Total 2886.67 / 2886.67 Balance 2886.67 / 2886.67 General: Alert, Oriented x3, Cooperative HEENT: Atraumatic, PERRLA, EOMI, Normocephalic Neck: Supple, No JVD, Negative Carotid Bruits Lungs: Clear to auscultation, Normal air movement Cardiovascular: Regular rate, Normal S1, No murmurs Abdomen: Bowel Sounds Present, Soft, Non Tender Extremities: No edema, Capillary Refill Less than 3 Seconds Skin: No rashes, No breakdown Musculoskeletal: No Tenderness to Palpation of Joints or Extremities, Arthritic Changes - Of lumbar vertebrae, Tenderness - Chronic tenderness of lumbar L4-L5, L5-S1 Neurological: Cranial nerves II-XII grossly intact, Deep Tendon Reflexes 2+/4 and Symmetrical, Neuro grossly intact Psych/Mental Status: Normal Affect, Appropriate Current Medications Acetaminophen (Tylenol) 650 mg PO Q6H PRN PRN PRN Reason: Pain Score 1-10/Temp > 100.7 F Last Admin: 08/27/19 00:39 Dose: 650 mg Documented by: Al Hydroxide/Mg Hydroxide (Mylanta Ii) 30 ml PO Q6H PRN PRN PRN Reason: Gastric Burning Albuterol Sulfate (Ventolin Aerosols) 2.5 mg INHALATION Q2H PRN PRN PRN Reason: Dyspnea, wheezing Bisacodyl (Dulcolax) 10 mg RECTAL DAILY PRN PRN Reason: Constipation Dextrose (D50w Syringe) 0 gm IV X1 PRN; Protocol PRN Reason: Hypoglycemia Dicyclomine HCl (Bentyl) 20 mg PO Q6H PRN PRN PRN Reason: abdominal discomfort Famotidine (Pepcid) 20 mg PO BID [facility] Last Admin: 08/27/19 22:10 Dose: 20 mg Documented by: Folic Acid (Folic Acid) 1 mg PO DAILY@0800 [facility] Last Admin: 08/28/19 07:48 Dose: 1 mg Documented by: Gabapentin (Neurontin) 300 mg PO Q8H PRN PRN PRN Reason: moderate to severe anxiety Glucagon () 1 mg IM .X1 PRN PRN Reason: Hypoglycemia Guaifenesin (Robitussin) 20 ml PO Q4H PRN PRN PRN Reason: COUGH Hydralazine HCl (Apresoline Iv) 10 mg IV Q4H PRN PRN PRN Reason: SBP > 160 Hydroxyzine Pamoate (Vistaril Pamoate Capsule) 50 mg PO Q4H PRN PRN PRN Reason: mild anxiety Ketorolac Tromethamine (Toradol (Bkc)) 30 mg IV Q6H PRN PRN PRN Reason: pain score 6-10/10 Loperamide HCl (Imodium) 2 mg PO Q4H PRN PRN PRN Reason: LOOSE STOOLS Lorazepam (Ativan) 1 mg PO Q4H [facility]; Taper Stop: 08/31/19 21:59 Last Admin: 08/28/19 06:03 Dose: 1 mg Documented by: Melatonin (Melatonin) 3 mg PO QHS PRN PRN PRN Reason: INSOMNIA Naloxone HCl (Narcan) 0.4 mg IV X1 PRN PRN Reason: recurrent lethargy, hypoxia Naproxen (Naprosyn) 500 mg PO BID PRN PRN PRN Reason: pain score 4-5/10 Nicotine (Nicoderm Cq (Pbkc)) 14 mg TRANSDERM. DAILY [facility] Last Admin: 08/28/19 07:47 Dose: 14 mg Documented by: Ondansetron HCl (Zofran) 4 mg IV Q8H PRN PRN PRN Reason: NAUSEA/VOMITING Ondansetron HCl (Zofran Odt) 8 mg PO Q8H PRN PRN PRN Reason: NAUSEA Oxycodone HCl (Oxycontin) 15 mg PO BID [facility] Last Admin: 08/27/19 22:10 Dose: 15 mg Documented by: Oxycodone HCl (Oxyir) 5 mg PO Q4H PRN PRN PRN Reason: Pain Score 6-10/10 Last Admin: 08/28/19 06:03 Dose: 5 mg Documented by: Prochlorperazine Edisylate (Compazine Iv) 5 mg IV Q4H PRN PRN PRN Reason: Breakthrough nausea/vomiting Psyllium Hydrophilic Mucilloid (Metamucil) 1 packet PO DAILY PRN PRN PRN Reason: Constipation Senna/Docusate Sodium (Senokot-S, Alexandra-Colace) 2 tablet PO BID PRN PRN PRN Reason: Constipation Sodium Chloride () 10 - 40 ml IV UD PRN PRN Reason: SALINE FLUSH Last Admin: 08/26/19 22:06 Dose: 10 ml Documented by: Thiamine [facility] (Vitamin B1) [facility] Last Admin: 08/28/19 07:47 Dose: 100 mg Documented by: Throat Lozenges (Cepacol Sore Throat Lozenge) 1 lozenge MUCOUS MEM Q2H PRN PRN PRN Reason: SORE THROAT Trazodone HCl (Desyrel) 100 mg PO QHS PRN PRN Reason: INSOMNIA Discharge Activity: May Not Drive Call your doctor if you observe: Fever of 101 or Higher, Coldness, Increased Pain, Inability to urinate, Inability to have a bowel movement, Shortness of breath, Fainting spells, Swelling in the ankles, Chest pain, Prolonged hiccoughing, Increased palpitations (irregular heartbeat), Calf discomfort, Uncontrolled pain Home Medications: Medications to take at Discharge Hydroxyzine HCl 50 mg PO BID PRN PRN 02/14/19 zolpidem 10 mg tablet 10 mg PO QHS PRN 06/23/19 Naproxen [Naprosyn] 500 mg PO BID PRN PRN 08/27/19 Alprazolam [Xanax] 0.5 mg PO 4X/DAY #0 08/28/19 Nicotine [Nicoderm] 14 mg TRANSDERM. DAILY #30 patch 08/28/19 Thiamine Hydrochloride [Vitamin B1] 100 mg PO DAILYCM #30 tab 08/28/19 Following Prescrptions Were Given to Patient: Nicotine [Nicoderm] 14 mg TRANSDERM. DAILY #30 patch [id number] Thiamine Hydrochloride [Vitamin B1] 100 mg PO DAILYCM #30 tab Transmission Status: Received by [facility] [place] - [id number] Primary Care Physician: Jessee Lawrence DO [Primary Care Provider] - Please follow up with your Primary Care Physician in: in 1-2 weeks Please Follow Up With: Eloy Mckeon MD When: lumbar disc buldge with chr back pain in 1 week Medical Necessity - Tobacco Use Smoking Status: Current every day smoker Tobacco Use: Cigarettes Meaningful Use Info Meaningful Use Diagnoses (Choose all that apply): None applicable Inpatient E&M: 17174 Disch Hosp
--- NOTE | 2019-08-28 11:00 | CASEMGMT ---
Social Work SW spoke with physician who states pt needs a follow up appt with pain management and with 180. SW explained pt is already connected with [facility] who pt would like to follow up with. SW met with pt who states he thinks he may have an appointment with [email or web address] but he is not certain. With pt permission, phone call to [email or web address] and appointment with Kate Doran CNP is set for October 06 at 1130. Pt denies persistent drug use stating he was in pain and made a bad decision and accepted heroin given to him to relieve pain. Pt plans to follow up with Kate Doran CNP. SW discussed physician recommendation for pain management and pt is agreeable and would prefer Dr. Humphries. Phone call to [facility] office and they accept pt insurance and will need referral information faxed and will then call pt to set appointment. Referral faxed. Pt made aware. No further SW needs. JULIAN Orellana
[2019-08-28 12:36] VITALS: BP 138/91; PULSE 63; RESP 18; TEMP 36.8; O2SAT 97
--- NOTE | 2019-08-28 14:42 | CASEMGMT ---
Social Work Return call from Dr. Humphries's office and they are unable to accept pt. Phone call to Dr. Mckeon's office and they can accept and scheduled appointment for 09/02 at 9:15. Phone call to pt who has already discharged and notified him of above. Pt is agreeable and appreciative of appointment. JULIAN Orellana
== END 2019-08-28 12:36 | disposition home or self-care (01) ==
LOC: ED 17:30 → MS3 21:22
PROVIDERS: Admitting Provider Family Medicine; Emergency Provider Emergency Medicine; PCP Family Medicine; Visit Provider Internal Medicine
DX: J96.01 Acute respiratory failure with hypoxia (principal); T40.1X1A Poisoning by heroin, accidental (unintentional), initial encounter; G92 Toxic encephalopathy; T42.4X1A Poisoning by benzodiazepines, accidental (unintentional), initial encounter; R53.83 Other fatigue; F17.210 Nicotine dependence, cigarettes, uncomplicated; K21.9 Gastro-esophageal reflux disease without esophagitis; F41.9 Anxiety disorder, unspecified; F32.9 Major depressive disorder, single episode, unspecified; G89.29 Other chronic pain; R74.0 Nonspecific elevation of levels of transaminase and lactic acid dehydrogenase [LDH]; M51.27 Other intervertebral disc displacement, lumbosacral region; F13.20 Sedative, hypnotic or anxiolytic dependence, uncomplicated; F11.20 Opioid dependence, uncomplicated; Z79.899 Other long term (current) drug therapy
CPT/HCPCS: 36415; 70450; 71045; 80048; 80053; 80307; 80320; 85025; 86703; 86706; 86803; 87340; 96361; 96374; 96375; 99218; 99251; 99285; J7030; A4216; G0378; G0463; G0480; J2310

== ENCOUNTER 2019-10-21 15:36 | Emergency (ER) | payer MEDICAID, SELFPAY ==
[2019-08-26 21:39] VITALS: BMI 21.4
[2019-10-21 15:37] VITALS: BP 133/61; PULSE 80; RESP 16; TEMP 37.4; O2SAT 97; BMI 21.2
--- NOTE | 2019-10-21 16:17 | ED.VISSUMM ---
- ER Visit Summary Date of Service: 10/21/19 Chief Complaint: [Back pain] History of Present Illness: The patient is a 54 M [presents to the emergency department complaint of back pain that started today after picking up a large toolbox weighing about 200 pounds. Patient has history of chronic back pain. Patient apparently currently seeing pain management and saw Dr. Del Angel in the office a few months ago and was told he might need injections in his back but would have to check with insurance if they would cover it. Patient also had an MRI for 5 months ago that showed some bulging disks in his back. Patient states he used to have numbness and tingling down the right leg but that now has resolved. He denies any pain shooting down his legs today. He denies any change in bowel or bladder function. He denies weakness in extremities. Patient also has history of asthma. Patient has history of anxiety and depression. Patient apparently had a opiate overdose a few months ago and was admitted to this hospital. Patient states his friend gave him something he and he was not sure what he was taking.] Physical Examination: [HEENT-PERRLA, EOMI. Cranial nerves II through XII grossly intact. TMs clear. Mucous membranes moist. No adenopathy. Cardiovascular-regular rate and rhythm without murmur or ectopy Lungs-clear to auscultation, chest wall stable without crepitus or subcu emphysema Abdomen-normoactive bowel sounds, soft, nontender, no rebound or rigidity, no peritoneal signs. Back exam-patient has diffuse tenderness over the lumbar paraspinal musculature and lumbar spine. There is no ecchymosis or bruising noted. There is no bony step-offs noted. He has negative straight leg raises. Deep tendon reflexes are plus 1 out of 4 bilaterally at the patella and Achilles. Patient has normal 5 extension bilaterally. Patient has normal sensation to light touch. Extremities-intact ?4, normal range of motion, normal pulses, atraumatic] Test Results: [None indicated] Emergency Department Course and Treatment: [I did review patient's oars report and he has not had a narcotic prescription since 2018. I explained to him that he needs to follow-up with his primary care physician or pain management doctor to manage his chronic pain issues. Patient states that his pain management doctor will not give him narcotics. I explained to them I cannot write a prescription for narcotics but will give a one-time dose here and a prescription for Flexeril as well as a few Ultram.] Treatment Plan: [We will be treated with Flexeril and Ultram for pain. He can still take ibuprofen. Patient to follow-up with his pain management doctor for further management of his chronic pain.] Disposition: Discharged home in stable condition] Impression: [Acute exacerbation of chronic back pain Lumbar strain] This note was generated with [employer] dictation software. It may contain incorrect words, spelling, and punctuation that were not noted in review of the chart prior to signing ED Disposition - Plan for ED Patient: Referrals: Jessee Lawrence DO [Primary Care Provider] -
--- NOTE | 2019-10-21 16:20 | ED.DEP ---
ED Disposition - Plan for ED Patient: Instructions: ED Back Pain Acute or Chronic, ED LUMBAR SPRAIN/STRAIN Prescriptions: cycloBENZAPRine HCl [Flexeril] 10 mg PO TID PRN #20 tab PRN Reason: Muscle Spasm Prescription Printed traMADol [Ultram] 50 mg PO Q4H PRN PRN 3 Days #20 tab PRN Reason: Pain Prescription Printed Referrals: Jessee Lawrence DO [Primary Care Provider] - 3-5 Days Eloy Mckeon MD [STAFF PHYSICIAN] - 3-5 Days
[2019-10-21] MEDS: oxyCODONE 5 MG Tablet 10 MG PO (16:44)
[2019-10-21] MEDS: cycloBENZAPRine HCl 10 MG Tablet PO (16:45)
[2019-10-21 16:48] VITALS: RESP 16
== END 2019-10-21 16:48 | disposition home or self-care (01) ==
LOC: ED 16:18
PROVIDERS: Emergency Provider Emergency Medicine; PCP Family Medicine
DX: S39.012A Strain of muscle, fascia and tendon of lower back, initial encounter (principal); X50.0XXA Overexertion from strenuous movement or load, initial encounter; Y93.89 Activity, other specified; Y92.9 Unspecified place or not applicable; M51.27 Other intervertebral disc displacement, lumbosacral region; G89.29 Other chronic pain; F41.9 Anxiety disorder, unspecified; Z72.0 Tobacco use
CPT/HCPCS: 99283

== ENCOUNTER 2019-11-06 18:23 | Emergency (ER) | payer MEDICAID, SELFPAY ==
[2019-11-06 18:25] VITALS: BP 123/77; PULSE 90; PULSE 96; RESP 17; TEMP 36.8; O2SAT 96; BMI 19.9
--- NOTE | 2019-11-06 18:46 | ED.VISSUMM ---
- ER Visit Summary Date of Service: 11/06/19 Chief Complaint: Overdose History of Present Illness: The patient is a 54 M presenting after being found unresponsive. According to EMS he was found unresponsive with minimal respirations. He was given nasal and IV Narcan and woke up. Patient is awake and alert on arrival to the ED and has no complaints. He adamantly denies drug use. Denies other complaints. Physical Examination: Vitals are stable. Patient is afebrile. Alert no acute distress. HEENT exam is unremarkable. Neck is supple. Lungs are clear and equal bilaterally. Heart is regular rate and rhythm. Abdomen is soft nontender nondistended. Extremities right forearm abrasion Skin is warm and dry. No focal neurologic deficit. Remainder of exam is unremarkable. Emergency Department Course and Treatment: Patient was observed in the ED. He remains hemodynamically stable. He is requesting discharge. He declined tetanus immunization for his right forearm abrasion which he states occurred yesterday. Advised follow-up with primary care physician. Advised return to ED if worsening complaints. Disposition: Discharge home Impression: Reported overdose This note was generated with [employer] dictation software. It may contain incorrect words, spelling, and punctuation that were not noted in review of the chart prior to signing ED Disposition - Plan for ED Patient: Instructions: ED Overdose Opiate Referrals: Jessee Lawrence DO [Primary Care Provider] -
--- NOTE | 2019-11-06 19:27 | ED.DEP ---
ED Disposition - Plan for ED Patient: Instructions: ED Overdose Opiate Referrals: Jessee Lawrence DO [Primary Care Provider] -
--- NOTE | 2019-11-06 19:40 | ED.RN ---
PT ANGRY IN ROOM . STATINGWHERE IS ALL MY STUFF. STATES HIS FRIENDS JUST CALLED HIM STATING HIS STUFF WAS HERE. PT STATES IN SAME SENTECE THAT HE HAS NO PHONE HERE AND CAN'T CONTACT ANYONE. PT ANGRY, YELLING, PT GOING THRU DRAWERS AND STUFFING THINGS IN HIS POCKETS. PT REMINDED THAT THIS STUFF DOES NOT BELONG TO HIM AND HE DOES NOT HAVE TO YELL. PT STORMS OUT. IV TO LEFT AC DCD
== END 2019-11-06 19:43 | disposition home or self-care (01) ==
LOC: ED 19:04
PROVIDERS: Emergency Provider Emergency Medicine; PCP Family Medicine
DX: T40.601A Poisoning by unspecified narcotics, accidental (unintentional), initial encounter (principal); R40.4 Transient alteration of awareness; Y92.9 Unspecified place or not applicable
CPT/HCPCS: 99284; J7030; A4216